=== PATIENT | male | born 1965 | race Caucasian/White ===

== ENCOUNTER → 2021-02-24 10:19 | Outpatient (CLI) | payer BC, SELFPAY ==
[2021-02-24 20:13] LABS: SARS-CoV-2 RNA PCR Positive
== END ==
PROVIDERS: PCP Internal Medicine; Visit Provider Internal Medicine
DX: U07.1 COVID-19 (principal); R68.89 Other general symptoms and signs
CPT/HCPCS: C9803; U0003; U0005

== ENCOUNTER 2021-03-03 11:28 | Outpatient (CLI) | payer BC, SELFPAY ==
--- NOTE | ~2021-03-03 | XR_ITS ---
EXAMINATION: XR chest 2V DATE: 03/03/2021 12:00 INDICATION: COVID-19 pneumonia. TECHNIQUE: Frontal and lateral views of the chest were obtained. COMPARISON: Chest 2 views 12/15/17, chest CT 01/06/2018 FINDINGS: The lung volumes are small. There are airspace opacities in the mid and lower lung zones wi th a basilar predominance. No pleural effusion or pneumothorax. The heart size is normal. IMPRESSION: 1. Small lung volumes with airspace opacities in the mid and lower lung zones with a basilar predomin ance, consistent with atelectasis versus pneumonia. Reviewed, dictated and finalized at location A. IMPRESSION: 1. Small lung volumes with airspace opacities in the mid and lower lung zones w ith a basilar predominance, consistent with atelectasis versus pneumonia.
[2021-03-03 12:49] LABS: Basophils Percent Auto 0.2 % (0.2-1.2); Hematocrit 40.1 % (42.0-52.0); Hemoglobin 13.8 g/dL (14.0-18.0); Immature Granulocyte Absolute 0.04 K/mm3 (0.00-0.031); Immature Granulocyte Percent A 0.8 % (0-0.5); Immature Platelet Fraction Pct 6.7 % (0.9-11.2); Lymphocytes Absolute Auto 0.75 K/mm3 (0.9-3.2); Lymphocytes Percent Auto 14.2 % (18.3-44.2); Mean Corpuscular HGB Conc 34.4 g/dl (32-36); Mean Corpuscular Hemoglobin 28.6 pg (26-34); Mean Corpuscular Volume 83.2 fl (80-100); Monocytes Absolute Auto 0.4 K/mm3 (0.1-0.6); Monocytes Percent Auto 6.8 % (2.6-8.5); Neutrophils Absolute Auto 4.1 K/mm3 (1.3-6.7); Platelet Count Result 122 k/mm3 (150-375); Red Blood Count 4.82 M/mm3 (4.6-6.20); Red Cell Distribution Width 12.6 % (11.5-14.5); White Blood Count 5.3 K/mm3 (4.5-10.0)
[2021-03-03 13:01] LABS: Alanine Aminotransferase 31 U/L (4-50); Albumin Level 3.9 g/dL (3.5-5.1); Alkaline Phosphatase 70 U/L (38-126); Anion Gap 4 mmol/L (8-16); Aspartate Amino Transferase 42 U/L (17-59); Bilirubin,Total 0.8 mg/dL (0.2-1.3); Blood Urea Nitrogen 15 mg/dL (9-20); Calcium 8.2 mg/dL (8.4-10.2); Carbon Dioxide 28 mmol/L (22-30); Chloride 101 mmol/L (98-107); Estimated Glomerular Filt Rate > 60; Glucose 110 mg/dL (75-110); Potassium 3.6 mmol/L (3.4-5.0); Sodium 133 mmol/L (137-145)
== END 2021-03-03 11:29 | disposition home or self-care (01) ==
PROVIDERS: PCP Internal Medicine; Visit Provider Internal Medicine
DX: U07.1 COVID-19 (principal)
CPT/HCPCS: 36415; 71046; 80053; 85025; 85055

== ENCOUNTER 2021-07-10 09:56 | Outpatient (CLI) | payer BC, SELFPAY ==
--- NOTE | 2021-07-14 17:11 | WPDPFTINT ---
PFT Procedure Performed PFT Procedure Performed Spirometry with Pre/Post Bronchodilator Plethysmography (Lung Vol) Diffusing Cap (DLCO) Flow Vol Loop PFT Interpretation DOS: 07/10/2021 REQUESTING: Dr. Jacinto Perkins REASON FOR TESTING: Shortness of breath PULMONARY FUNCTION TESTS Repeatability of spirometry FEV1 maneuver post bronchodilator is a Grade B. Spirometry: FEV1 is 96%, 3.22 L normal. FVC 107% normal. The FEV1/FVC ratio is 71% normal. There is a 19% increase in FEV1 which is greater than 200 mL after bronchodilator. This is significant Lung volumes: total lung capacity 107%, normal. Residual volume 108% normal. RV/TLC is 31% normal. No air trapping. Airway resistance normal. Diffusion: DLCO is 80%, normal. Flow volume loop: Inspiratory limb is not reproducible. IMPRESSION: Normal spirometry, normal lung volumes and diffusion. Irregular inspiratory limb is noted, significance is unclear. Annika Weiss MD
== END 2021-07-10 09:57 | disposition home or self-care (01) ==
PROVIDERS: PCP Internal Medicine; Visit Provider Internal Medicine
DX: R06.02 Shortness of breath (principal)
CPT/HCPCS: 94060; 94726; 94729

== ENCOUNTER 2021-09-05 08:20 | Outpatient (CLI) | payer BC, SELFPAY ==
--- NOTE | 2021-09-05 08:35 | EST_ITS ---
Patient Info Name: Saw Meyers Age: 56 years : 1965 Gender: Male Ht: 66 in Wt: 199 lbs BSA: 2.08 m2 HR: 71 bpm BP: 109 / 70 mmHg Heart Rhythm: Sinus Rhythm Exam Date: 09/05/2021 8:46 AM Exam Location: [facility] Patient Status: Outpatient Admit Date: 09/05/2021 Staff Ordering Physician: Cora Caraballo Pediatric Speech Language Pathologist: Rekha Contreras RDCS Attending Provider: Cora Caraballo Exercise Technologist: Lucy Figueroa CT Exercise Physician: Denton Sadler DO Exam Type: CA stress echo Study Info Indications R07.9 - Chest pain, unspecified Treadmill exercise stress echocardiogram is performed. Summary 1. 1. Negative Dionicio exercise stress test for ischemic ST changes by ECG criteria. 2. 2. Mildly reduced functional capacity, achieving 10 METs of workload. 3. 3. Appropriate HR response to exercise. 4. 4. Appropriate HR recovery at 1 minute post exercise. 5. 5. Negative stress echocardiogram for ischemia by wall motion analysis. 6. 6. Patient informed of the above results. Stress Echo Findings Left Ventricle Appropriate increase in LV endocardial thickening with systole. Appropriate augmentation of contractility with systole. No wall motion abnormality. Left Ventricle Normal LV systolic function, no wall motion abnormality. Right Ventricle Incidentally noted an enlarged RV. Protocol: Dionicio Stress ECG Details Stage: REST Duration (min): 1 min : 53 sec Speed (mph): 0.0 Grade (%): 0 HR (bpm): 68 SBP (mmHg): 109 DBP (mmHg): 70 METS: --- Stage: REST Duration (min): 9 min : 15 sec Speed (mph): 0.0 Grade (%): 0 HR (bpm): 80 SBP (mmHg): 109 DBP (mmHg): 70 METS: --- Stage: STAGE 1 Duration (min): 1 min : 0 sec Speed (mph): 1.7 Grade (%): 10 HR (bpm): 101 SBP (mmHg): 109 DBP (mmHg): 70 METS: --- Stage: STAGE 1 Duration (min): 2 min : 0 sec Speed (mph): 1.7 Grade (%): 10 HR (bpm): 109 SBP (mmHg): 109 DBP (mmHg): 70 METS: --- Stage: STAGE 1 Duration (min): 3 min : 0 sec Speed (mph): 1.7 Grade (%): 10 HR (bpm): 106 SBP (mmHg): 149 DBP (mmHg): 88 METS: --- Stage: STAGE 2 Duration (min): 1 min : 0 sec Speed (mph): 2.5 Grade (%): 12 HR (bpm): 115 SBP (mmHg): 149 DBP (mmHg): 88 METS: --- Stage: STAGE 2 Duration (min): 2 min : 0 sec Speed (mph): 2.5 Grade (%): 12 HR (bpm): 106 SBP (mmHg): 146 DBP (mmHg): 88 METS: --- Stage: STAGE 2 Duration (min): 3 min : 0 sec Speed (mph): 2.5 Grade (%): 12 HR (bpm): 117 SBP (mmHg): 146 DBP (mmHg): 88 METS: --- Stage: STAGE 3 Duration (min): 1 min : 0 sec Speed (mph): 3.4 Grade (%): 14 HR (bpm): 136 SBP (mmHg): 179 DBP (mmHg): 93 METS: --- Stage: STAGE 3 Duration (min): 1 min : 57 sec Speed (mph): 0.0 Grade (%): 0 HR (bpm): 138 SBP (mmHg): 179 DBP (mmHg): 93 METS: ---
== END 2021-09-05 08:21 | disposition home or self-care (01) ==
LOC: ANHCARD 08:21
PROVIDERS: PCP Internal Medicine; Visit Provider Nurse Practitioner
DX: R07.9 Chest pain, unspecified (principal)
CPT/HCPCS: 93351

== ENCOUNTER 2022-01-19 11:52 | Outpatient (CLI) | payer BC, SELFPAY ==
--- NOTE | ~2022-01-19 | XR_ITS ---
EXAMINATION: XR chest 2V 01/19/2022 12:08 INDICATION: Shortness of breath PROCEDURE: 2 view chest COMPARISON: 03/03/2021 FINDINGS: The lungs are clear. The cardiomediastinal silhouette is within normal limits. There are no pleural effusions. There is no pneumothorax suspected. IMPRESSION: 1: NO ACUTE CARDIOPULMONARY DISEASE. Reviewed, dictated and finalized at location B. OR PREMIUM AUDITOR
== END 2022-01-19 11:53 | disposition home or self-care (01) ==
LOC: ANHIMG 11:55
PROVIDERS: PCP Internal Medicine; Visit Provider Internal Medicine Pulmonary Disease
DX: R06.02 Shortness of breath (principal)
CPT/HCPCS: 71046

== ENCOUNTER 2022-02-16 07:46 | Outpatient (CLI) | payer BC, SELFPAY ==
--- NOTE | 2022-02-18 12:07 | WPDHOMESLEEP ---
Sleep Study - Home Unattended Date of Study: 02/16/22 Ordering Provider: Alex Santiago MD Interpreting Provider: Loan Valladares, DO Home Sleep Study Type: Apnea Link Air Height: 1.68 m Weight: 95.708 kg Body Mass Index: 34.0 Neck Circumference (inches): 16 Brady: 2 Reason for Sleep Study Snoring, unrefreshing sleep Sleep History The patient is a 56-year-old male with exertional dyspnea, GERD and BPH that had a home sleep test ordered by his executive pastry chef for evaluation of sleep apnea. The patient denies awakening from sleep short of breath. He denies awakening at night with heartburn, belching or cough. He rarely snores and is never loud enough that others complain. He denies having trouble sleeping when he has a cold. He denies waking up gasping for air throughout the night. He denies having breathing problems at night observed by others. He denies sweating excessively at night. He denies having heart palpitations or irregular heartbeats during the night. He denies falling asleep during the day and while driving. He denies sleep paralysis, cataplexy and hypnagogic / hypnopompic hallucinations. He occasionally has trouble at work due to sleepiness. He rarely has nightmares. He occasionally remembers his dreams. He frequently has thoughts racing through his mind. He denies feeling sad or depressed. He rarely has anxiety. He occasionally has muscular tension. He denies noticing parts of his body jerk. He denies kicking during the night. He denies having crawling and aching feelings in his legs as well as leg pain during the night. He denies grinding his teeth during sleep awakening with morning jaw pain. He denies being bothered by pain during the day and being awakened by pain during the night. He denies waking up feeling stiff in the morning with sore achy muscles. He denies waking up with pain in the neck, spine or other joints. She he goes to bed at 9:00 p.m. on weekdays and 10:00 p.m. on the weekends. It takes him 2 hours to fall asleep. He wakes up 1-3 times through the night to urinate. It will take 10 1 or more hours to fall back asleep. He did not list when he wakes up in the morning. He typically gets 5-7 hours of sleep per night. He does not stay in bed after waking up in the morning. He currently lives with his . He does not consume any caffeinated beverages within 2 hours of bedtime. He does not engage in physical exercise before bedtime. He will watch television before falling asleep. He does not take naps in the afternoon or the evening. He drinks 2-3 cups of caffeinated beverage per day. He denies tobacco, alcohol and recreational drug use. [facility] Past Medical History Medical History Benign prostatic hyperplasia Chronic GERD Elevated BP without diagnosis of hypertension Shortness of breath Family History Family History Father Hypertension Family history of diabetes mellitus in first degree relative Social History Social History Smoking status: Never smoker Second hand tobacco smoke exposure: Yes Alcohol intake: current Alcohol use details: rarely Medications Home Medications Medication Instructions Recorded Confirmed Type pantoprazole 40 mg tablet,delayed See Rx Instructions .ROUTE 02/11/21 11/20/21 Rx release .COMPLEX #90 tablet finasteride 5 mg tablet 5 mg PO DAILY #90 tablet 11/14/21 11/20/21 Rx Sleep Procedure This test was performed using 4 channel monitoring including respiratory effort channel, snoring channel, heart rate channel, and oxygen saturation channel. This study was scored using [facility] guidelines. Sleep Architecture The patient had a total recording time of 8 hours 16 minutes and total monitoring time of 8 hours 4 minutes. The patient spent 5 hours 28 minutes, 6
[2022-02-18 12:21] VITALS: BMI 34.0
== END 2022-02-17 13:23 | disposition home or self-care (01) ==
LOC: ANHCSM 07:46
PROVIDERS: PCP Internal Medicine; Visit Provider Internal Medicine Pulmonary Disease
DX: G47.10 Hypersomnia, unspecified (principal); G47.33 Obstructive sleep apnea (adult) (pediatric)
CPT/HCPCS: 95806

== ENCOUNTER 2022-05-01 08:21 | Outpatient (CLI) | payer BC, SELFPAY ==
--- NOTE | 2022-05-01 08:38 | ECHO_ITS ---
Patient Info Name: Saw Meyers Age: 56 years : 1965 Gender: Male Ht: 66 in Wt: 200 lbs BSA: 2.09 m2 HR: 66 bpm BP: 142 / 99 mmHg Heart Rhythm: Sinus Rhythm Technical Quality: Good Exam Date: 05/01/2022 9:18 AM Exam Location: [facility] Patient Status: Outpatient Admit Date: 05/01/2022 Staff Ordering Physician: Alex Santiago MD Imaging Analyst: La Elizabeth RDCS Attending Provider: Alex Santiago MD Referring Physician: Jack GRACIA; Exam Type: CA echo doppler color flow Study Info Indications R06.02 - Shortness of breath Complete two-dimensional, color flow and Doppler transthoracic echocardiogram is performed. Summary 1. Complete two-dimensional, color flow and Doppler transthoracic echocardiogram is performed. 2. Left ventricular chamber dimension is normal. 3. Left ventricular systolic function is normal, estimated at 60-65%. 4. The left ventricular diastolic function is grade I diastolic dysfunction. 5. E/e' 13 is mildly elevated. 6. Left atrial chamber dimension is mildly enlarged. 7. There is mild aortic valve sclerosis. 8. There is mild mitral valve regurgitation. 9. There is mild tricuspid valve regurgitation. 10. No pulmonary hypertension, estimated pulmonary arterial systolic pressure is 24 mmHg. Left Ventricle E/e' 13 is mildly elevated. Left ventricular chamber dimension is normal. Left ventricular systolic function is normal, estimated at 60-65%. The left ventricular diastolic function is grade I diastolic dysfunction. Right Ventricle Right ventricular chamber dimension is normal. Right ventricular systolic function is normal. Left Atria Left atrial chamber dimension is mildly enlarged. Right Atria Right atrial chamber dimension is normal. Aortic Valve The aortic valve is trileaflet. There is mild aortic valve sclerosis. There is no aortic valve stenosis. There is no aortic valve regurgitation. Pulmonic Valve There is no pulmonic regurgitation. Mitral Valve There is no mitral valve stenosis. There is mild mitral valve regurgitation. Tricuspid Valve There is mild tricuspid valve regurgitation. No pulmonary hypertension, estimated pulmonary arterial systolic pressure is 24 mmHg. Pericardium/Pleural There is no pericardial effusion. Inferior Vena Cava Normal inferior vena cava with >50% collapse upon inspiration consistent with normal right atrial pressure, 5 mmHg. Aorta The aortic root size at the sinus of Valsalva is normal. Left Ventricular Outflow Tract Name Value Normal LVOT 2D LVOT Diameter 1.9 cm LVOT Doppler LVOT Peak Gradient 2 mmHg LVOT Mean Gradient 1 mmHg LVOT VTI 14 cm LVOT VTI/AV VTI Ratio 0.7 LVOT Stroke Volume 43 ml LVOT CO 2.9 l/min LVOT CI 1.4 l/min/m2 Pulmonic Valve Name V
== END 2022-05-01 08:22 | disposition home or self-care (01) ==
PROVIDERS: PCP Internal Medicine; Visit Provider Internal Medicine Pulmonary Disease
DX: R06.02 Shortness of breath (principal); I08.3 Combined rheumatic disorders of mitral, aortic and tricuspid valves
CPT/HCPCS: 93306

== ENCOUNTER → 2023-01-30 09:42 | Outpatient (CLI) | payer BC, SELFPAY ==
--- NOTE | ~2023-01-30 | MR_ITS ---
EXAMINATION: MR hand RT wo con DATE: 01/30/2023 10:47 INDICATION: Acute dysfunction of right flexor pollicis longus tendon. TECHNIQUE: Magnetic resonance imaging (MRI) of the right hand was performed without intravenous contr ast. COMPARISON: None. FINDINGS: Bone alignment is normal. No fracture. There is edema-like marrow signal intensity and tuft of first distal phalanx, likely stress reaction. There is mild osteoarthritis of triscaphe joint, sabino desean-hamate joint, pisotriquetral joint, and first carpometacarpal joint. There are small intraosseou s ganglia in the heads of the third and fifth metacarpals. There is mild tendinopathy of flexor polli cis longus distally characterized by increased signal intensity. The pulleys are normal. IMPRESSION: 1. Mild tendinopathy of flexor pollicis longus distally. 2. Mild polyarticular osteoarthritis. Reviewed, dictated and finalized at location A. ICA ARCHITECT
== END ==
PROVIDERS: PCP Internal Medicine; Visit Provider Plastic Surgery
DX: S66.001A Unspecified injury of long flexor muscle, fascia and tendon of right thumb at wrist and hand level, initial encounter (principal); X58.XXXA Exposure to other specified factors, initial encounter; M19.041 Primary osteoarthritis, right hand
CPT/HCPCS: 73218

== ENCOUNTER 2023-02-26 12:01 | Outpatient (CLI) | payer BC, SELFPAY ==
--- NOTE | ~2023-02-26 | XR_ITS ---
XR finger 1st RT min 2V DATE: 02/26/2023 12:24 INDICATION: Right first digit abnormality TECHNIQUE: 3 views of first digit COMPARISON: None FINDINGS: No fracture or dislocation, periosteal reaction or bone destruction. No radiopaque foreign body or subcutaneous emphysema. Mild osteoarthritis at triscaphe and first carpometacarpal joints. IMPRESSION: Mild osteoarthritis Reviewed, dictated and finalized at location B. IMPRESSION: Mild osteoarthritis
== END 2023-02-26 12:02 | disposition home or self-care (01) ==
PROVIDERS: PCP Internal Medicine; Visit Provider Plastic Surgery
DX: S62.521A Displaced fracture of distal phalanx of right thumb, initial encounter for closed fracture (principal); X58.XXXA Exposure to other specified factors, initial encounter; M19.041 Primary osteoarthritis, right hand
CPT/HCPCS: 73140

== ENCOUNTER 2023-10-27 14:31 | Inpatient (IN) | payer BC, SELFPAY ==
--- NOTE | ~2023-10-27 | CT_ITS ---
EXAMINATION: CT abdomen pelvis w con DATE: 10/27/2023 17:21 INDICATION: Low abdominal pain. TECHNIQUE: Computed tomography (CT) of the abdomen and pelvis was performed with 100 mL Omnipaque 350 intravenous contrast. Automated exposure control and iterative reconstruction technique were employe d. The dose-length product was 710.01 mGy-cm. COMPARISON: Abdomen CT 01/06/2018 FINDINGS: The visualized portions of the lung bases demonstrate mild atelectasis. No pleural effusion . The heart size is normal. No pericardial effusion. There is a small sliding hiatal hernia. The live r, gallbladder, spleen, and pancreas are normal. There are masses in the adrenal glands measuring up to 13 mm on the left measuring soft tissue attenuation without change from 01/06/18, likely adenomas. T he kidneys are normal. There is a left inguinal hernia containing fat. There are scattered diverticul a in the colon. There is wall thickening of the sigmoid colon with surrounding fat stranding. The betty endix is normal. There is free intraperitoneal gas in the upper abdomen and near the sigmoid colon. T here is no free intraperitoneal fluid. There are no pathologically enlarged lymph nodes. There is sev ere lower lumbar spondylosis. There is mild thoracic spondylosis. IMPRESSION: 1. Perforated sigmoid diverticulitis. No abscess. Reviewed, dictated and finalized at location A. NSED MARRIAGE AND FAMILY THERAPIST
--- NOTE | ~2023-10-27 | US_ITS ---
EXAMINATION:US venous doppler LE RT INDICATION:Right leg swelling TECHNIQUE: Multiple grayscale, color flow and Doppler images of the right lower extremity deep venous systems were obtained and reviewed. COMPARISON:No prior studies for comparison. FINDINGS: The common femoral, superficial femoral and popliteal veins demonstrate normal respiratory variation, augmentation and compressibility. Color flow is also seen within the posterior tibial, pe roneal, greater saphenous and profunda veins. IMPRESSION: 1: No lower extremity deep venous thrombosis. Reviewed, dictated and finalized at location A. 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
[2023-10-27 14:36] VITALS: BP 116/98; PULSE 141; RESP 16; TEMP 37.5; O2SAT 98
[2023-10-27 14:49] LABS: Hematocrit 45.3 % (42.0-52.0); Hemoglobin 15.3 g/dL (14.0-18.0); Mean Corpuscular HGB Conc 33.8 g/dl (32-36); Mean Corpuscular Hemoglobin 28.1 pg (26-34); Mean Corpuscular Volume 83.1 fl (80-100); Mean Platelet Volume 11.8 fl (7.4-10.4); Platelet Count Result 145 k/mm3 (150-375); Red Blood Count 5.45 M/mm3 (4.6-6.20); Red Cell Distribution Width 12.7 % (11.5-14.5); White Blood Count 15.5 K/mm3 (4.5-10.0)
[2023-10-27 15:06] LABS: Alanine Aminotransferase 28 U/L (6-50); Albumin Level 4.6 g/dL (3.5-5.1); Alkaline Phosphatase 83 U/L (38-126); Anion Gap 10 mmol/L (8-16); Aspartate Amino Transferase 32 U/L (17-59); Bilirubin,Total 1.1 mg/dL (0.2-1.3); Blood Urea Nitrogen 16 mg/dL (9-20); Calcium 9.4 mg/dL (8.4-10.2); Carbon Dioxide 25 mmol/L (22-30); Chloride 98 mmol/L (98-107); Estimated Glomerular Filt Rate > 60; Glucose 127 mg/dL (65-110); Lipase 47 U/L (23-300); Potassium 3.9 mmol/L (3.4-5.0); Sodium 133 mmol/L (137-145)
[2023-10-27 15:10] LABS: Appearance Urine Clear (Clear); Bilirubin Urine Negative (Negative); Blood Urine Negative (Negative); Color Urine Yellow (Yellow); Glucose Urine UA Negative (Negative); Ketones Urine Negative (Negative); Leukocyte Esterase Ur Negative LEU/UL (Negative); Nitrate Urine Negative (Negative); Protein Urine Negative (Negative); Specific Grav Ur 1.007 (1.001-1.035); Urobilinogen Urine 0.2 mg/dL (<2.0); pH Urine 7.5 (5.0-9.0)
[2023-10-27 15:15] LABS: Band Neutrophils Percent 11 % (0-6); Lymphocytes Absolute Manual 0.62 K/mm3 (1.1-4.5); Monocytes Absolute Manual 0.46 K/mm3 (0.1-0.90); Monocytes Percent Manual 3 % (3-9); Neutrophils Absolute Manual 14.41 K/mm3 (1.3-6.7); Neutrophils Percent Manual 82 % (46-73); Total Cells Counted 100
[2023-10-27 15:16] LABS: Schistocytes 3+ (NORMAL)
[2023-10-27 15:18] LABS: Add Urine Microscopic? NO
--- NOTE | 2023-10-27 18:05 | ECG_ITS ---
Measurements Intervals Boles Rate: 105 P: 55 DE: 184 QRS: 2 QRSD: 97 T: 40 QT: 338 QTc: 448 Interpretive Statements SINUS TACHYCARDIA POSSIBLE LEFT ATRIAL ENLARGEMENT DELAYED PRECORDIAL R/S TRANSITION BORDERLINE T WAVE ABNORMALITY- INFERIOR LEADS BORDERLINE ECG NO PREVIOUS ECG AVAILABLE FOR COMPARISON Electronically Signed On 10-27-2023 19:25:01 SEMICONDUCTOR PACKAGES PLATEMAKER by Denton Sadler D.O.
--- NOTE | 2023-10-27 18:06 | ED.GENADULT ---
HPI - General Adult General Chief complaint: Abdominal Pain Stated complaint: ab pain Time Seen by Provider: 10/27/23 16:59 History of Present Illness HPI narrative: 58-year-old male presenting to the emergency department for evaluation left-sided abdominal pain. Patient reports that the pain started this morning. Patient did have some associated nausea but no vomiting. Patient denies any change in bowel habits. Patient denies any prior history of diverticular disease. Patient has no prior abdominal surgical history and is not on any blood thinners. Related Data Allergies Allergy/AdvReac Type Severity Reaction Status Date / Time No Known Allergies Allergy Verified 10/27/23 16:44 Review of Systems Review of Systems: All systems reviewed & are unremarkable except as noted in HPI and below PMFSH Past Medical History Medical History Benign prostatic hyperplasia Chronic GERD Elevated BP without diagnosis of hypertension Shortness of breath Family History Family History Father Hypertension Family history of diabetes mellitus in first degree relative Social History Social History Smoking status: Never smoker Second hand tobacco smoke exposure: Yes Alcohol intake: current Alcohol use details: rarely Lack of Transportation: No Lack of Food: Never True Current Housing: I Have Housing Concerned About Future Housing: No Difficulty Paying Gas/Electric Bills: No Difficulty Paying for Meds: No Currently Unemployed: YES Education: High School Diploma/GED Difficulty w/ Childcare or Family Care: No Exam Narrative: APPEARANCE: Uncomfortable appearing HEAD: normocephalic, atraumatic. EYES: PERRLA/EOMI, conjunctivae clear. NOSE: Normal no drainage EARS:TMS clear with good light reflex. THROAT: Pharynx clear, no exudate. NECK: Supple. No adenopathy, no masses. RESPIRATORY: Airway patent, respirations nonlabored. Clear to auscultation bilaterally, no rales, rhonchi, wheezing. CARDIOVASCULAR: Regular rate and rhythm without murmurs rubs or gallops. ABDOMINAL: Soft, nontender, nondistended, normal bowel sounds MUSCULOSKELETAL: Moves all extremities. Strength/ROM intact, No edema, No calf tenderness. NEURO: Alert. Cranial nerves II through XII intact. Good gait. Good coordination SKIN: Warm, dry. Normal Color PSYCHIATRIC: Normal affect/mood. Course Course Emergency Course: 58-year-old male presenting to the emergency department for evaluation of lower abdominal pain. Patient was afebrile but does have a leukocytosis of 15.5. CMP had no significant abnormalities UA showed no evidence of infection. CT showed evidence of perforated sigmoid diverticulitis without abscess. I discussed the case with surgery and they will see the patient as consult. Patient was started on Zosyn and blood cultures are pending. I discussed the case with the hospitalist and patient was accepted for admission. Both patient and family were updated on the results of the workup planned for admission and treatment. All questions and concerns were addressed and patient was resting comfortably at time of admission. Vital Signs Vital signs: Vital Signs Temperature 99.5 F 10/27/23 14:36 Pulse Rate 141 H 10/27/23 14:36 Respiratory Rate 16 10/27/23 14:36 Blood Pressure 116/98 H 10/27/23 14:36 Pulse Oximetry 98 10/27/23 14:36 Oxygen Delivery Room Air 10/27/23 14:36 Temperature 99.5 F 10/27/23 14:36 Pulse Rate 104 H 10/27/23 18:48 Respiratory Rate 17 10/27/23 18:48 Blood Pressure 114/78 10/27/23 18:48 Pulse Oximetry 98 10/27/23 18:48 Oxygen Delivery Room Air 10/27/23 14:36 Medical Decision Making Differential Diagnosis Differential Diagnosis: Diverticulitis, colitis, small-bowel obstruction, enteritis Vital
[2023-10-27] MEDS: HYDROmorphone HCL INJ (*CRX) 1 MG/ML SYR 0.5 MG IV PUSH ×2 (18:28→21:55)
[2023-10-27] MEDS: PIPERACILLN/TAZ 3.375GM/NS50ML 3.375 GM/50 ML BAG IVPB (18:28)
[2023-10-27] MEDS: SODIUM CHLORIDE 0.9% IV 1,000 ML 999 ML IV CONT (18:28)
[2023-10-27 18:48] VITALS: BP 114/78; PULSE 104; RESP 17; O2SAT 98
[2023-10-27 18:53] LABS: INR 1.1; Prothrombin Time 14.3 Seconds (11.1-14.7)
[2023-10-27 18:54] LABS: Partial Thromboplastin Time 28.5 SECONDS (22.3-36.8)
--- NOTE | 2023-10-27 20:31 | PM.IMHP ---
H&P: HPI History of Present Illness Date/Time: 10/27/23 20:31 Chief Complaint: Abdominal pain. Narrative: This is a 58-year-old male with past medical history significant for benign prostatic hyperplasia, GERD, diverticulosis. Patient presents to the emergency room due to abdominal pain localized to the lower abdomen while he was at work had been in his usual state of health up until this point denies any diarrhea, fevers, chills, nausea, vomiting pain is crampy raises at 10/10 in intensity. Patient denies any changes in stool character or bowel habits, no bright red blood per rectum, no melena, has had good appetite, no nausea, no vomiting, no diarrhea, no loose stools. Preliminary workup was significant for CT of abdomen and pelvis with perforated diverticulum. Patient has been admitted for further evaluation management and treatment. EXAMINATION: CT abdomen pelvis w con DATE: 10/27/2023 17:21 INDICATION: Low abdominal pain. TECHNIQUE: Computed tomography (CT) of the abdomen and pelvis was performed with 100 mL Omnipaque 350 intravenous contrast. Automated exposure control and iterative reconstruction technique were employed. The dose-length product was 710.01 mGy-cm. COMPARISON: Abdomen CT 01/06/2018 FINDINGS: The visualized portions of the lung bases demonstrate mild atelectasis. No pleural effusion. The heart size is normal. No pericardial effusion. There is a small sliding hiatal hernia. The liver, gallbladder, spleen, and pancreas are normal. There are masses in the adrenal glands measuring up to 13 mm on the left measuring soft tissue attenuation without change from 01/06/18, likely adenomas. The kidneys are normal. There is a left inguinal hernia containing fat. There are scattered diverticula in the colon. There is wall thickening of the sigmoid colon with surrounding fat stranding. The appendix is normal. There is free intraperitoneal gas in the upper abdomen and near the sigmoid colon. There is no free intraperitoneal fluid. There are no pathologically enlarged lymph nodes. There is severe lower lumbar spondylosis. There is mild thoracic spondylosis. IMPRESSION: 1. Perforated sigmoid diverticulitis. No abscess. Review of Systems Review of Systems: abdominal pain Constitutional: Constitutional: Denies chills, Denies fatigue, Denies fever(s), Denies malaise, Denies night sweats, Denies poor appetite and Denies weakness Eyes: Eyes: Denies change in vision PMFSH Past Medical History Medical History Benign prostatic hyperplasia Chronic GERD Elevated BP without diagnosis of hypertension Shortness of breath Family History Family History Father Hypertension Family history of diabetes mellitus in first degree relative Social History Social History Smoking status: Never smoker Second hand tobacco smoke exposure: Yes Alcohol intake: never Alcohol use details: rarely Substance use: never Lack of Transportation: No Lack of Food: Never True Current Housing: I Have Housing Concerned About Future Housing: No Difficulty Paying Gas/Electric Bills: No Difficulty Paying for Meds: No Currently Unemployed: No Education: Don't Know Difficulty w/ Childcare or Family Care: No Spiritual care concerns: No Meds Home Medications and Allergies Home Medications Medication Instructions Recorded Confirmed Type finasteride 5 mg tablet 5 mg PO HS 10/27/23 10/27/23 History pantoprazole 40 mg tablet,delayed 40 mg PO QAM 10/27/23 10/27/23 History release Allergies Allergy/AdvReac Type Severity Reaction Status Date / Time No Known Allergies Allergy Verified 10/27/23 16:44 Vital Signs Vital Signs - 24 hr 10/27/23 14:36 10/27/23 18:48 Temperature 99.5 F Pulse Rate 141 H 104 H Respiratory Rate 16 17 Blood Pres
--- NOTE | 2023-10-27 21:47 | ADMGEN ---
This patient, Saw Meyers, was admitted to Medical Room 345-01. Patient/family oriented to hospital policies and general routines including ID bracelet, bed and alarms, visiting hours, pain management, procedures, bathroom and other care routines, personal items, smoking policy, room service/diet, and visiting hours. Information on how to activate the Rapid Response Team has been discussed. Patient/Family are encouraged to report perceived risks to care and to ask questions if they do not understand what they are told or what they should do.
[2023-10-27 21:51] VITALS: BMI 29.1
[2023-10-27] MEDS: SODIUM CHLORIDE 0.9% IV 1,000 ML 125 ML IV CONT (21:55)
[2023-10-27 22:00] VITALS: BP 118/81; PULSE 96; RESP 16; TEMP 37; O2SAT 99
[2023-10-28] VITALS (9 sets, daily range): BP systolic 111–130; BP diastolic 66–75; PULSE 56–100; RESP 14–18; TEMP 36.9–37; O2SAT 94–98
[2023-10-28] MEDS: HYDROmorphone HCL INJ (*CRX) 1 MG/ML SYR 0.5 MG IV PUSH ×2 (03:21→08:19)
[2023-10-28] MEDS: SODIUM CHLORIDE 0.9% IV 1,000 ML 125 ML IV CONT ×3 (06:04→21:16)
--- NOTE | 2023-10-28 08:08 | PM.IMPN ---
Progress Note: A&P Assessment and Plan (1) Perforation of sigmoid colon due to diverticulitis: Code(s): K57.20 - Diverticulitis of large intestine with perforation and abscess without bleeding Status: Acute Assessment and Plan: 10/28: No history of similar episodes in the past. It appears plan from surgery is to proceed nonoperatively with reimaging on Wednesday. NPO at this time. Zosyn is ongoing. IVF nacl at 125ml/hr. Increase pain regimen as not relieved on current dosing. (2) Chronic GERD: Code(s): K21.9 - Gastro-esophageal reflux disease without esophagitis Status: Acute Assessment and Plan: 10/28: Protonix to continue - change to IV. (3) Abdominal pain: Code(s): R10.9 - Unspecified abdominal pain Status: Acute (4) Fatty liver disease, nonalcoholic: Code(s): K76.0 - Fatty (change of) liver, not elsewhere classified Status: Acute (5) CONSTANCE (obstructive sleep apnea): Code(s): G47.33 - Obstructive sleep apnea (adult) (pediatric) Status: Acute Plan Diet: NPO Activity: As tolerated. Analgesia: Hydromorphone IV VTE prophylaxis: lovenox. Ulcer prophylaxis: protonix. Disposition: Expect 48-72 hours of further management. Time Spent With Patient Time with patient: 25 - 35 minutes Subjective Date/time seen: 10/28/23 08:08 Interval history: Saw Meyers is a 58 year old male who presents with abdominal pain starting yesterday am. He denies history of similar. He awoke with pain across the lower abdomen. He does not report any GIB. The symptoms continued to worsen during the morning and he presented for evaluation. ED workup noted for leukocytosis and perforated diverticulitis. Surgery consulted and patient admitted on zosyn. 10/28: Pain still significant, not much relief from the 0.5mg of hydromorphone. Review of Systems Review of Systems: All systems reviewed & are unremarkable except as noted in HPI and below Exam Narrative: GENERAL APPEARANCE: Appears to be in no acute distress. HEAD: normocephalic atraumatic EYES: PERRL, EOMI. Vision grossly intact. ENT: Hearing grossly intact, no nasal discharge NECK: Neck supple, trachea midline. CARDIAC: Normal S1/S2. Rhythm is regular. No murmurs, rubs, or gallops. No cyanosis or pallor. Extremities are warm and well perfused. LUNGS: Clear to auscultation without rales, rhonchi, wheezing or diminished breath sounds. Respirations even and unlabored. ABDOMEN: BS positive x 4 quadrants. Soft, nondistended, ttp across the lower quadrants. No guarding or rebound. MSK: No joint tenderness/swelling, fair strength in all extremities. PERIPHERAL VASCULAR: Peripheral pulses palpable. Normal perfusion, cap refill <2 seconds. No edema. NEURO: Follows commands. No focal deficits. SKIN: [place] without lesions or eruptions. PSYCH: Stable, no paranoia or delusional thinking. Objective Data Vital Signs Vital Signs: Vital Signs - 24 hr 10/27/23 14:36 10/27/23 18:48 10/27/23 22:00 Temperature 99.5 F 98.6 F Pulse Rate 141 H 104 H 96 Respiratory Rate 16 17 16 Blood Pressure 116/98 H 114/78 118/81 Pulse Oximetry 98 98 99 Oxygen Delivery Room Air 10/28/23 00:00 10/28/23 04:00 10/28/23 06:00 Temperature 98.6 F Pulse Rate 98 88 56 L Respiratory Rate 18 Blood Pressure 111/66 Pulse Oximetry 94 Oxygen Delivery Intake/Output Intake/Output: Intake & Output 10/25/23 10/26/23 10/27/23 10/28/23 23:59 23:59 23:59 23:59 Intake Total 1050 1000 Balance 1050 1000 Meds/Results Medications: Active Medications Generic Name Dose Route Start Last Admin Trade Name Freq PRN Reason Stop Dose Admin Hydromorphone HCl 0.5 mg 10/27/23 18:45 10/28/23 03:21 Hydromorphone Hcl Inj (*Crx) 1 Mg/Ml Syr IV PUSH 0.5 mg Q4H PRN Administration Pain Rated 7-10 Sodium Chloride 1,000 mls @ 125 mls/hr 10/27/23 18:45 10/28/23 06:04 Normal Saline Iv IV CONT 125 mls/hr .Q
[2023-10-28] MEDS: ONDANSETRON INJ 4 MG/2 ML VIAL IV PUSH (08:19)
--- NOTE | 2023-10-28 10:26 | PM.CNGS ---
Assessment and Plan Assessment and plan (1) Perforation of sigmoid colon due to diverticulitis: Code(s): K57.20 - Diverticulitis of large intestine with perforation and abscess without bleeding Status: Acute Assessment and Plan: CT showed acute sigmoid diverticulitis with tiny areas of free intraperitoneal air near the sigmoid colon and then some more distant free air in the upper abdomen, consistent with perforation. There is no CT evidence of an abscess. He has no diffuse peritoneal signs on exam and is hemodynamically stable. We would recommend to initially treat conservatively with IV antibiotics and keep him NPO for now. Will adjust analgesics to help with pain control. There are no repeat labs today, so I have added some labs this morning. Discussed with the patient that we will continue to monitor closely with labs and serial abdominal exams to see how he progresses. Hopefully this will continue to improve with IV antibiotics. Although, if the patient worsens with conservative treatment, then he could require surgery in the acute phase, which we try to avoid as it comes with a higher risk of a colostomy. (2) Benign prostatic hyperplasia: Qualifiers: Lower urinary tract symptom presence: symptoms absent Qualified Code(s): N40.0 - Benign prostatic hyperplasia without lower urinary tract symptoms Code(s): N40.0 - Benign prostatic hyperplasia without lower urinary tract symptoms Status: Acute (3) Chronic GERD: Code(s): K21.9 - Gastro-esophageal reflux disease without esophagitis Status: Acute Plan I have discussed the patient's case and plan of care with Dr. Mcpherson. Thank you for allowing us to see the patient in consultation and we will continue to follow along with you. History of Present Illness Consult details Consult date: 10/28/23 Reason for consult: other (Perforated diverticulitis) Requesting physician: Christos Carvalho MD Narrative: This is a 58-year-old man we have been asked to see in surgical consultation for perforated diverticulitis. He reports being in his normal state of health until he woke up yesterday morning. He noticed some lower abdominal cramping pain when he woke up, but was able to go to work. Only a few hours into work, his abdominal pain progressively became more severe. He then left work and reports associated nausea, but no vomiting. His reports him having a 103? F fever yesterday, which prompted them to call his PCP. When seen by his PCP, they referred him to the ER. [place] [id number] [place] scan of the abdomen and pelvis showed perforated sigmoid diverticulitis, no abscess. In the ER, his heart rate was as high as 145. EKG showed sinus tachycardia. His heart rate improved after receiving IV fluids and pain medication. He was admitted to the hospitalist service and started on IV Zosyn. He is having some pain relief with the IV Dilaudid. He is passing flatus and his last BM was yesterday and reportedly normal for him. This is his first episode of diverticulitis. Denies any previous abdominal surgeries or colonoscopies. He did a Cologuard this year that was reportedly negative. Review of Systems Review of Systems: All systems reviewed & are unremarkable except as noted in HPI and below PMFSH Past Medical History Medical History Benign prostatic hyperplasia Chronic GERD Elevated BP without diagnosis of hypertension Shortness of breath Family History Family History Father Hypertension Family history of diabetes mellitus in first degree relative Social History Social History Smoking status: Never smoker Second hand tobacco smoke exposure: Yes Alcohol intake: never Alcohol use details: rarely Substance use: never Lack of Transportation: No [place]
[2023-10-28] MEDS: PIPERACILLN/TAZ 3.375GM/NS50ML 3.375 GM/50 ML BAG IVPB ×3 (11:23→20:14)
[2023-10-28] MEDS: HYDROmorphone HCL INJ (*CRX) 1 MG/ML SYR IV PUSH ×4 (11:27→21:16)
[2023-10-28 11:34] LABS: Hematocrit 39.6 % (42.0-52.0); Hemoglobin 13.1 g/dL (14.0-18.0); Immature Platelet Fraction Pct 7.1 % (0.9-11.2); Mean Corpuscular HGB Conc 33.1 g/dl (32-36); Mean Corpuscular Hemoglobin 28.5 pg (26-34); Mean Corpuscular Volume 86.1 fl (80-100); Mean Platelet Volume 11.5 fl (7.4-10.4); Platelet Count Result 100 k/mm3 (150-375); Red Cell Distribution Width 13.2 % (11.5-14.5); White Blood Count 9.5 K/mm3 (4.5-10.0)
[2023-10-28] MEDS: PANTOPRAZOLE SODIUM IV 40 MG VIAL IV PUSH (14:27)
[2023-10-29] VITALS (9 sets, daily range): BP systolic 123–129; BP diastolic 67–86; PULSE 82–95; RESP 16–20; TEMP 36.9–37.1; O2SAT 96–97
[2023-10-29] MEDS: PIPERACILLN/TAZ 3.375GM/NS50ML 3.375 GM/50 ML BAG IVPB ×4 (02:50→20:38)
[2023-10-29] MEDS: HYDROmorphone HCL INJ (*CRX) 1 MG/ML SYR IV PUSH ×4 (02:50→12:32)
[2023-10-29] MEDS: ONDANSETRON INJ 4 MG/2 ML VIAL IV PUSH ×2 (02:55→18:13)
[2023-10-29 05:57] LABS: Hematocrit 37.3 % (42.0-52.0); Hemoglobin 12.3 g/dL (14.0-18.0); Immature Platelet Fraction Pct 7.1 % (0.9-11.2); Mean Corpuscular Hemoglobin 28.3 pg (26-34); Mean Corpuscular Volume 85.7 fl (80-100); Mean Platelet Volume 11.6 fl (7.4-10.4); Platelet Count Result 95 k/mm3 (150-375); Red Blood Count 4.35 M/mm3 (4.6-6.20); Red Cell Distribution Width 12.8 % (11.5-14.5); White Blood Count 9.1 K/mm3 (4.5-10.0)
[2023-10-29 06:01] LABS: Anion Gap 8 mmol/L (8-16); Blood Urea Nitrogen 12 mg/dL (9-20); Calcium 7.9 mg/dL (8.4-10.2); Carbon Dioxide 21 mmol/L (22-30); Chloride 106 mmol/L (98-107); Estimated CRCL calculation 81 ml/min; Estimated Glomerular Filt Rate > 60; Glucose 95 mg/dL (65-110); Potassium 4.1 mmol/L (3.4-5.0); Sodium 135 mmol/L (137-145)
[2023-10-29] MEDS: SODIUM CHLORIDE 0.9% IV 1,000 ML 125 ML IV CONT ×2 (06:20→17:00)
[2023-10-29] MEDS: PANTOPRAZOLE SODIUM IV 40 MG VIAL IV PUSH (08:10)
--- NOTE | 2023-10-29 12:50 | PM.IMPN ---
Progress Note: A&P Assessment and Plan (1) Perforation of sigmoid colon due to diverticulitis: Code(s): K57.20 - Diverticulitis of large intestine with perforation and abscess without bleeding Status: Acute (2) Fatty liver disease, nonalcoholic: Code(s): K76.0 - Fatty (change of) liver, not elsewhere classified Status: Acute (3) Chronic GERD: Code(s): K21.9 - Gastro-esophageal reflux disease without esophagitis Status: Acute (4) CONSTANCE (obstructive sleep apnea): Code(s): G47.33 - Obstructive sleep apnea (adult) (pediatric) Status: Acute Plan 58-year-old male presented with left-sided abdominal pain. Started 10/27/2023. On presentation was tachycardic in 140s, leukocytosis at 15.5. Urinalysis negative CT abdomen pelvis showed perforated sigmoid diverticulitis with no abscess. General surgery has been consulted. Plan on operative management. IV Zosyn and IV fluids ordered. No prior history of similar episodes in the past. CONSTANCE on CPAP Chronic GERD on PPI Fatty liver disease DVT prophylaxis Lovenox Thrombocytopenia new on Lovenox held. Will continue to monitor now. Could be related to IV antibiotics/sepsis/infection Diet per General surgery Subjective Date/time seen: 10/29/23 12:50 Interval history: Saw Meyers is a 58 year old male who presents with abdominal pain starting yesterday am. He denies history of similar. He awoke with pain across the lower abdomen. He does not report any GIB. The symptoms continued to worsen during the morning and he presented for evaluation. ED workup noted for leukocytosis and perforated diverticulitis. Surgery consulted and patient admitted on zosyn. 10/28: Pain still significant, not much relief from the 0.5mg of hydromorphone. 10/29/2023: Patient feels a little better today. Pain has improved. Still requiring IV pain medication. No nausea vomiting. Remains afebrile. Labs reviewed. Review of Systems Review of Systems: All systems reviewed & are unremarkable except as noted in HPI and below Exam Narrative: GENERAL APPEARANCE: Appears to be in no acute distress. HEAD: normocephalic atraumatic EYES: PERRL, EOMI. Vision grossly intact. ENT: Hearing grossly intact, no nasal discharge NECK: Neck supple, trachea midline. CARDIAC: Normal S1/S2. Rhythm is regular. No murmurs, rubs, or gallops. No cyanosis or pallor. Extremities are warm and well perfused. LUNGS: Clear to auscultation without rales, rhonchi, wheezing or diminished breath sounds. Respirations even and unlabored. ABDOMEN: BS positive x 4 quadrants. Soft, nondistended, ttp across the lower quadrants. No guarding or rebound. MSK: No joint tenderness/swelling, fair strength in all extremities. PERIPHERAL VASCULAR: Peripheral pulses palpable. Normal perfusion, cap refill <2 seconds. No edema. NEURO: Follows commands. No focal deficits. SKIN: [place] without lesions or eruptions. PSYCH: Stable, no paranoia or delusional thinking. Objective Data Vital Signs Vital Signs: Vital Signs - 24 hr 10/28/23 14:00 10/28/23 16:00 10/28/23 19:43 Temperature 98.5 F 98.6 F Pulse Rate 93 94 94 Respiratory Rate 16 14 Blood Pressure 130/69 126/75 Pulse Oximetry 98 95 10/28/23 20:00 10/29/23 00:00 10/29/23 04:00 Temperature Pulse Rate 100 95 92 Respiratory Rate Blood Pressure Pulse Oximetry 10/29/23 04:43 10/29/23 08:00 10/29/23 12:00 Temperature 98.8 F Pulse Rate 92 82 87 Respiratory Rate 16 Blood Pressure 125/77 Pulse Oximetry 96 Intake/Output Intake/Output: Intake & Output 10/26/23 10/27/23 10/28/23 10/29/23 23:59 23:59 23:59 23:59 Intake Total 1050 3270 1100 Balance 1050 3270 1100 Meds/Results Medications: Active Medications Generic Name Dose Route Start Last Admin Trade Name Freq PRN Reason Stop Dose Admin Enoxaparin Sodium 40 mg 10/29/23 09:00 10/29/23 08:11 Enoxaparin 40 Mg/0.4 Ml Syringe SUB-Q Not Giv
--- NOTE | 2023-10-29 13:02 | PC.NURSE ---
Patient Platelet count was below 100,000 on am labs. Lovenox was held per protocol. Dr Tyson made aware when rounding on patient this am.
--- NOTE | 2023-10-29 14:51 | PM.PNGS ---
Progress Note: A&P Assessment and Plan (1) Diverticulitis of colon with perforation: Code(s): K57.20 - Diverticulitis of large intestine with perforation and abscess without bleeding Status: Acute Assessment and Plan: Patient is improving clinically. Abdominal tenderness on exam is decreased. White blood count is normalized. Remains afebrile and has no tachycardia. I think we can start some clear liquids today. If his abdominal exam continues to improve over the next day or 2 we can probably advance his diet. Do not feel a repeat CT scan is necessary at this time as he is improving clinically. Subjective Subjective Date/Time Seen: 10/29/23 14:51 Interval history: Patient now is hospital day 2 after being admitted for Sigmoid diverticulitis with micro perforation and no pelvic abscess. patient states his pain is better today. Continues to ask for IV narcotic pain medications. He is passing flatus but no bowel movements. No nausea or vomiting. White blood cell count has normalized. He has no fever or tachycardia. Remains on Zosyn for IV antibiotics. Exam Const: General: comfortable and no acute distress Resp: Effort & Inspection: normal respiratory effort Auscultation: clear to auscultation bilaterally Cardio: Rate: regular rate Rhythm: regular rhythm GI: Other: Abdomen is soft and nondistended. Has mild tenderness to palpation in suprapubic and left lower quadrant areas of the abdomen. He has some voluntary guarding but no evidence of peritoneal signs. Neuro: Speech: normal speech Psych: Mental Status: mental status grossly normal Affect: normal affect Objective Data Vital Signs Vital Signs: Vital Signs - 24 hr 10/28/23 16:00 10/28/23 19:43 10/28/23 20:00 Temperature 37.0 C Pulse Rate 94 94 100 Respiratory Rate 14 Blood Pressure 126/75 Pulse Oximetry 95 10/29/23 00:00 10/29/23 04:00 10/29/23 04:43 Temperature 37.1 C Pulse Rate 95 92 92 Respiratory Rate 16 Blood Pressure 125/77 Pulse Oximetry 96 10/29/23 08:00 10/29/23 12:00 Temperature Pulse Rate 82 87 Respiratory Rate Blood Pressure Pulse Oximetry Intake/Output Intake/Output: Intake & Output 10/26/23 10/27/23 10/28/23 10/29/23 23:59 23:59 23:59 23:59 Intake Total 1050 3270 1100 Balance 1050 3270 1100 Meds/Results Medications: Active Medications Generic Name Dose Route Start Last Admin Trade Name Freq PRN Reason Stop Dose Admin Enoxaparin Sodium 40 mg 10/29/23 09:00 10/29/23 08:11 Enoxaparin 40 Mg/0.4 Ml Syringe SUB-Q Not Given DAILY ANTONIO Hydromorphone HCl 1 mg 10/28/23 10:41 10/29/23 12:32 Hydromorphone Hcl Inj (*Crx) 1 Mg/Ml Syr IV PUSH 1 mg Q3H PRN Administration Pain Rated 7-10 Hydromorphone HCl 0.5 mg 10/28/23 10:41 Hydromorphone Hcl Inj (*Crx) 1 Mg/Ml Syr IV PUSH Q3H PRN Pain Rated 4-6 Sodium Chloride 1,000 mls @ 125 mls/hr 10/27/23 18:45 10/29/23 06:20 Normal Saline Iv IV CONT 125 mls/hr .Q8H ANTONIO Administration Piperacillin/Tazobactam/Dextrose 3.375 gm in 50 mls @ 100 mls/hr 10/28/23 09:00 10/29/23 08:40 Zosyn 3.375 Gm/Ns 50 Ml IVPB Infused Q6H ANTONIO Infusion Ondansetron HCl 4 mg 10/27/23 18:45 10/29/23 02:55 Ondansetron Inj 4 Mg/2 Ml Vial IV PUSH 4 mg Q4H PRN Administration Nausea Pantoprazole Sodium 40 mg 10/28/23 12:20 10/29/23 08:10 Pantoprazole Sodium Iv 40 Mg Vial IV PUSH 40 mg QAM ANTONIO Administration Radiology Results: ITS Impressions Abdomen/Pelvis CT 10/27/23 17:23 IMPRESSION: 1. Perforated sigmoid diverticulitis. No abscess. Labs Labs: Laboratory Results - last 24 hr 10/29/23 05:34 WBC 9.1 RBC 4.35 L Hgb 12.3 L Hct 37.3 L MCV 85.7 MCH 28.3 MCHC 33.0 RDW 12.8 Plt Count 95 L MPV 11.6 H % Immature Plt Fraction 7.1 Sodium 135 L Potassium 4.1 Chloride 106 Carbon Dioxide 21 L Anion Gap 8 BUN 12
[2023-10-29] MEDS: HYDROmorphone HCL INJ (*CRX) 1 MG/ML SYR 0.5 MG IV PUSH (15:58)
[2023-10-30] VITALS (9 sets, daily range): BP systolic 132–138; BP diastolic 78–86; PULSE 74–86; RESP 12–20; TEMP 36.6–36.9; O2SAT 96–99
[2023-10-30] MEDS: MELATONIN 3 MG TABLET 6 MG PO ×2 (00:34→20:25)
[2023-10-30] MEDS: ONDANSETRON INJ 4 MG/2 ML VIAL IV PUSH (00:35)
[2023-10-30] MEDS: SODIUM CHLORIDE 0.9% IV 1,000 ML 125 ML IV CONT ×3 (03:02→22:54)
[2023-10-30] MEDS: PIPERACILLN/TAZ 3.375GM/NS50ML 3.375 GM/50 ML BAG IVPB ×4 (03:03→20:25)
[2023-10-30] MEDS: HYDROmorphone HCL INJ (*CRX) 1 MG/ML SYR 0.5 MG IV PUSH (04:28)
[2023-10-30 06:02] LABS: Basophils Percent Auto 0.3 % (0.2-1.2); Eosinophils Percent Auto 0.3 % (0-4.4); Hematocrit 36.3 % (42.0-52.0); Hemoglobin 12.5 g/dL (14.0-18.0); Immature Granulocyte Absolute 0.02 K/mm3 (0.00-0.031); Immature Granulocyte Percent A 0.3 % (0-0.5); Immature Platelet Fraction Pct 7.1 % (0.9-11.2); Lymphocytes Absolute Auto 0.83 K/mm3 (0.9-3.2); Lymphocytes Percent Auto 13.7 % (18.3-44.2); Mean Corpuscular HGB Conc 34.4 g/dl (32-36); Mean Corpuscular Hemoglobin 28.9 pg (26-34); Mean Corpuscular Volume 83.8 fl (80-100); Mean Platelet Volume 11.9 fl (7.4-10.4); Monocytes Absolute Auto 0.4 K/mm3 (0.1-0.6); Monocytes Percent Auto 5.9 % (2.6-8.5); Neutrophils Absolute Auto 4.8 K/mm3 (1.3-6.7); Neutrophils Percent Auto 79.5 % (45.5-73.1); Platelet Count Result 104 k/mm3 (150-375); Red Blood Count 4.33 M/mm3 (4.6-6.20); Red Cell Distribution Width 12.4 % (11.5-14.5); White Blood Count 6.1 K/mm3 (4.5-10.0)
[2023-10-30 06:13] LABS: Alanine Aminotransferase 15 U/L (6-50); Albumin Level 3.3 g/dL (3.5-5.1); Alkaline Phosphatase 71 U/L (38-126); Anion Gap 9 mmol/L (8-16); Aspartate Amino Transferase 20 U/L (17-59); Blood Urea Nitrogen 8 mg/dL (9-20); Calcium 8.1 mg/dL (8.4-10.2); Carbon Dioxide 22 mmol/L (22-30); Chloride 106 mmol/L (98-107); Estimated CRCL calculation 105 ml/min; Estimated Glomerular Filt Rate > 60; Glucose 108 mg/dL (65-110); Magnesium 2.2 mg/dL (1.6-2.3); Potassium 3.7 mmol/L (3.4-5.0); Sodium 137 mmol/L (137-145)
[2023-10-30] MEDS: PANTOPRAZOLE SODIUM IV 40 MG VIAL IV PUSH (08:16)
[2023-10-30] MEDS: ENOXAPARIN 40 MG/0.4 ML SYRINGE SUB-Q (08:16)
--- NOTE | 2023-10-30 10:08 | PM.PNGS ---
Progress Note: A&P Assessment and Plan (1) Diverticulitis of colon with perforation: Code(s): K57.20 - Diverticulitis of large intestine with perforation and abscess without bleeding Status: Acute Assessment and Plan: exam much improved, WBC normal, ok to advance to low fiber diet, cont abx Subjective Subjective Date/Time Seen: 10/30/23 10:08 Interval history: feels better, shawn clears, pain improved Review of Systems Review of Systems: All systems reviewed & are unremarkable except as noted in HPI and below Exam Const: General: cooperative, comfortable and no acute distress Resp: Auscultation: clear to auscultation bilaterally Cardio: Rate: regular rate Rhythm: regular rhythm GI: Inspection: normal to inspection and distended GI Palp: Yes abdominal tenderness, Yes Soft to palpation, Yes Tenderness to palpation present (GI), No Guarding due to palpation present (GI) and No Rigid due to palpation Objective Data Vital Signs Vital Signs: Vital Signs - 24 hr 10/29/23 12:00 10/29/23 14:00 10/29/23 16:00 Temperature 37.1 C Pulse Rate 87 89 85 Respiratory Rate 18 Blood Pressure 123/67 Pulse Oximetry 96 10/29/23 21:20 10/29/23 20:00 10/30/23 00:00 Temperature 36.9 C Pulse Rate 85 85 83 Respiratory Rate 20 Blood Pressure 129/86 Pulse Oximetry 97 10/30/23 04:00 10/30/23 05:54 Temperature 36.9 C Pulse Rate 77 83 Respiratory Rate 20 Blood Pressure 136/78 Pulse Oximetry 96 Intake/Output Intake/Output: Intake & Output 10/27/23 10/28/23 10/29/23 10/30/23 23:59 23:59 23:59 23:59 Intake Total 1050 3270 2680 1475 Balance 1050 3270 2680 1475 Meds/Results Medications: Active Medications Generic Name Dose Route Start Last Admin Trade Name Freq PRN Reason Stop Dose Admin Enoxaparin Sodium 40 mg 10/29/23 09:00 10/30/23 08:16 Enoxaparin 40 Mg/0.4 Ml Syringe SUB-Q 40 mg DAILY ANTONIO Administration Hydromorphone HCl 1 mg 10/28/23 10:41 10/29/23 12:32 Hydromorphone Hcl Inj (*Crx) 1 Mg/Ml Syr IV PUSH 1 mg Q3H PRN Administration Pain Rated 7-10 Hydromorphone HCl 0.5 mg 10/28/23 10:41 10/30/23 04:28 Hydromorphone Hcl Inj (*Crx) 1 Mg/Ml Syr IV PUSH 0.5 mg Q3H PRN Administration Pain Rated 4-6 Sodium Chloride 1,000 mls @ 125 mls/hr 10/27/23 18:45 10/30/23 03:02 Normal Saline Iv IV CONT 125 mls/hr .Q8H ANTONIO Administration Piperacillin/Tazobactam/Dextrose 3.375 gm in 50 mls @ 100 mls/hr 10/28/23 09:00 10/30/23 08:15 Zosyn 3.375 Gm/Ns 50 Ml IVPB 100 mls/hr Q6H ANTONIO Administration Melatonin 6 mg 10/29/23 23:50 10/30/23 00:34 Melatonin 3 Mg Tablet PO 6 mg HS ANTONIO Administration Ondansetron HCl 4 mg 10/27/23 18:45 10/30/23 00:35 Ondansetron Inj 4 Mg/2 Ml Vial IV PUSH 4 mg Q4H PRN Administration Nausea Pantoprazole Sodium 40 mg 10/28/23 12:20 10/30/23 08:16 Pantoprazole Sodium Iv 40 Mg Vial IV PUSH 40 mg QAM ANTONIO Administration Radiology Results: ITS Impressions Abdomen/Pelvis CT 10/27/23 17:23 IMPRESSION: 1. Perforated sigmoid diverticulitis. No abscess. Labs Labs: Laboratory Results - last 24 hr 10/30/23 05:35 WBC 6.1 RBC 4.33 L Hgb 12.5 L Hct 36.3 L MCV 83.8 MCH 28.9 MCHC 34.4 RDW 12.4 Plt Count 104 L MPV 11.9 H Immature Gran % (Auto) 0.3 Neut % (Auto) 79.5 H Lymph % (Auto) 13.7 L [place] % (Auto) 5.9 Eos % (Auto) 0.3 Baso % (Auto) 0.3 Lymph # (Auto) 0.83 L [place] # (Auto) 0.4 Eos # (Auto) 0.0 Baso # (Auto) 0.0 Abs Immat Gran (auto) 0.02 Absolute Neuts (auto) 4.8 Absolute Nucleated RBC 0.0 Nucleated RBC % 0.0 % Immature Plt Fraction 7.1 Sodium 137 Potassium 3.7 Chloride 106 Carbon Dioxide 22 Anion Gap 9 BUN 8 L Creatinine 0.60 L Estim Creat Clear Calc 105 Estimated GFR > 60 Glucose 108 Calcium 8.1 L Magnesium 2.2 Total Bilirubin 1.0 AST 20 ALT 15 Alkaline Phosphatase 71 Tot
--- NOTE | 2023-10-30 13:52 | PM.IMPN ---
Progress Note: A&P Assessment and Plan (1) Perforation of sigmoid colon due to diverticulitis: Code(s): K57.20 - Diverticulitis of large intestine with perforation and abscess without bleeding Status: Acute (2) Fatty liver disease, nonalcoholic: Code(s): K76.0 - Fatty (change of) liver, not elsewhere classified Status: Acute (3) Chronic GERD: Code(s): K21.9 - Gastro-esophageal reflux disease without esophagitis Status: Acute (4) CONSTANCE (obstructive sleep apnea): Code(s): G47.33 - Obstructive sleep apnea (adult) (pediatric) Status: Acute Plan 58-year-old male presented with left-sided abdominal pain. Started 10/27/2023. On presentation was tachycardic in 140s, leukocytosis at 15.5. Urinalysis negative CT abdomen pelvis showed perforated sigmoid diverticulitis with no abscess. General surgery has been consulted. Plan on operative management. IV Zosyn and IV fluids ordered. No prior history of similar episodes in the past. Continues to improve on conservative management diet has been advanced to low residue today if tolerated plan for DC in a.m. on oral antibiotics CONSTANCE on CPAP Chronic GERD on PPI Fatty liver disease DVT prophylaxis Lovenox Thrombocytopenia new on Lovenox held. Will continue to monitor now. Could be related to IV antibiotics/sepsis/infection Diet per General surgery Subjective Date/time seen: 10/30/23 13:52 Interval history: Saw Meyers is a 58 year old male who presents with abdominal pain starting yesterday am. He denies history of similar. He awoke with pain across the lower abdomen. He does not report any GIB. The symptoms continued to worsen during the morning and he presented for evaluation. ED workup noted for leukocytosis and perforated diverticulitis. Surgery consulted and patient admitted on zosyn. 10/28: Pain still significant, not much relief from the 0.5mg of hydromorphone. 10/29/2023: Patient feels a little better today. Pain has improved. Still requiring IV pain medication. No nausea vomiting. Remains afebrile. Labs reviewed. 10/30/2023.: No overnight events. Feels much better. Pain is much less. No fever chills. Labs reviewed. Review of Systems Review of Systems: All systems reviewed & are unremarkable except as noted in HPI and below Exam Narrative: GENERAL APPEARANCE: Appears to be in no acute distress. HEAD: normocephalic atraumatic EYES: PERRL, EOMI. Vision grossly intact. ENT: Hearing grossly intact, no nasal discharge NECK: Neck supple, trachea midline. CARDIAC: Normal S1/S2. Rhythm is regular. No murmurs, rubs, or gallops. No cyanosis or pallor. Extremities are warm and well perfused. LUNGS: Clear to auscultation without rales, rhonchi, wheezing or diminished breath sounds. Respirations even and unlabored. ABDOMEN: BS positive x 4 quadrants. Soft, nondistended, ttp across the lower quadrants. No guarding or rebound. MSK: No joint tenderness/swelling, fair strength in all extremities. PERIPHERAL VASCULAR: Peripheral pulses palpable. Normal perfusion, cap refill <2 seconds. No edema. NEURO: Follows commands. No focal deficits. SKIN: [place] without lesions or eruptions. PSYCH: Stable, no paranoia or delusional thinking. Objective Data Vital Signs Vital Signs: Vital Signs - 24 hr 10/29/23 14:00 10/29/23 16:00 10/29/23 21:20 Temperature 98.7 F 98.4 F Pulse Rate 89 85 85 Respiratory Rate 18 20 Blood Pressure 123/67 129/86 Pulse Oximetry 96 97 10/29/23 20:00 10/30/23 00:00 10/30/23 04:00 Temperature Pulse Rate 85 83 77 Respiratory Rate Blood Pressure Pulse Oximetry 10/30/23 05:54 10/30/23 08:00 10/30/23 12:00 Temperature 98.5 F Pulse Rate 83 79 78 Respiratory Rate 20 Blood Pressure 136/78 Pulse Oximetry 96 Intake/Output Intake/Output: Intake & Output 10/27/23 10/28/23 10/29/23 10/30/23 23:59 23:59 23:59 23:59 Intake Total 1050 7730 8050 0735 Balance 1050 3
[2023-10-31] VITALS: PULSE 84
[2023-10-31] MEDS: PIPERACILLN/TAZ 3.375GM/NS50ML 3.375 GM/50 ML BAG IVPB ×3 (02:40→14:56)
[2023-10-31 04:00] VITALS: PULSE 81
[2023-10-31 05:08] VITALS: BP 136/82; PULSE 82; RESP 14; TEMP 36.9; O2SAT 98
[2023-10-31 06:22] LABS: Basophils Percent Auto 0.4 % (0.2-1.2); Eosinophils Absolute Auto 0.1 K/mm3 (0-0.3); Eosinophils Percent Auto 1.2 % (0-4.4); Immature Granulocyte Absolute 0.02 K/mm3 (0.00-0.031); Immature Granulocyte Percent A 0.4 % (0-0.5); Lymphocytes Absolute Auto 1.03 K/mm3 (0.9-3.2); Lymphocytes Percent Auto 19.9 % (18.3-44.2); Mean Corpuscular HGB Conc 34.2 g/dl (32-36); Mean Corpuscular Hemoglobin 28.3 pg (26-34); Mean Corpuscular Volume 82.8 fl (80-100); Mean Platelet Volume 11.2 fl (7.4-10.4); Monocytes Absolute Auto 0.4 K/mm3 (0.1-0.6); Monocytes Percent Auto 7.3 % (2.6-8.5); Neutrophils Absolute Auto 3.7 K/mm3 (1.3-6.7); Neutrophils Percent Auto 70.8 % (45.5-73.1); Platelet Count Result 147 k/mm3 (150-375); Red Blood Count 4.59 M/mm3 (4.6-6.20); Red Cell Distribution Width 12.4 % (11.5-14.5); White Blood Count 5.2 K/mm3 (4.5-10.0)
[2023-10-31 06:43] LABS: Alanine Aminotransferase 17 U/L (6-50); Albumin Level 3.3 g/dL (3.5-5.1); Alkaline Phosphatase 72 U/L (38-126); Anion Gap 7 mmol/L (8-16); Aspartate Amino Transferase 20 U/L (17-59); Bilirubin,Total 0.7 mg/dL (0.2-1.3); Blood Urea Nitrogen 10 mg/dL (9-20); Calcium 8.3 mg/dL (8.4-10.2); Carbon Dioxide 24 mmol/L (22-30); Chloride 106 mmol/L (98-107); Estimated CRCL calculation 105 ml/min; Estimated Glomerular Filt Rate > 60; Glucose 108 mg/dL (65-110); Magnesium 2.1 mg/dL (1.6-2.3); Potassium 3.5 mmol/L (3.4-5.0); Sodium 137 mmol/L (137-145)
[2023-10-31 08:00] VITALS: PULSE 83
[2023-10-31] MEDS: ENOXAPARIN 40 MG/0.4 ML SYRINGE SUB-Q (08:13)
[2023-10-31] MEDS: PANTOPRAZOLE SODIUM IV 40 MG VIAL IV PUSH (08:13)
[2023-10-31] MEDS: SODIUM CHLORIDE 0.9% IV 1,000 ML 125 ML IV CONT (08:17)
[2023-10-31] MEDS: NAPROXEN 500 MG TABLET PO (09:16)
--- NOTE | 2023-10-31 11:14 | PM.PNGS ---
Progress Note: A&P Assessment and Plan (1) Diverticulitis of colon with perforation: Code(s): K57.20 - Diverticulitis of large intestine with perforation and abscess without bleeding Status: Acute Assessment and Plan: exam benign, cont low fiber diet, ok to dc home c po abx from surgical standpoint, will need colonoscopy in 4-6 wks Subjective Subjective Date/Time Seen: 10/31/23 11:14 Interval history: shawn low fiber diet, abd pain completely resolved Review of Systems Review of Systems: All systems reviewed & are unremarkable except as noted in HPI and below Exam Const: General: cooperative, comfortable and no acute distress Resp: Auscultation: clear to auscultation bilaterally Cardio: Rate: regular rate Rhythm: regular rhythm GI: Inspection: normal to inspection and non-distended GI Palp: No abdominal tenderness, Yes Soft to palpation, No Tenderness to palpation present (GI), No Guarding due to palpation present (GI), No Rigid due to palpation and No Rebound tenderness present Objective Data Vital Signs Vital Signs: Vital Signs - 24 hr 10/30/23 12:00 10/30/23 13:59 10/30/23 16:00 Temperature 36.6 C Pulse Rate 78 81 74 Respiratory Rate 12 Blood Pressure 138/86 Pulse Oximetry 98 10/30/23 19:34 10/30/23 20:00 10/31/23 00:00 Temperature 36.7 C Pulse Rate 86 84 84 Respiratory Rate 16 Blood Pressure 132/84 Pulse Oximetry 99 10/31/23 04:00 10/31/23 05:08 10/31/23 08:00 Temperature 36.9 C Pulse Rate 81 82 83 Respiratory Rate 14 Blood Pressure 136/82 Pulse Oximetry 98 Intake/Output Intake/Output: Intake & Output 10/28/23 10/29/23 10/30/23 10/31/23 23:59 23:59 23:59 23:59 Intake Total 3270 2680 5085 2380 Balance 3270 2680 5085 2380 Meds/Results Medications: Active Medications Generic Name Dose Route Start Last Admin Trade Name Freq PRN Reason Stop Dose Admin Enoxaparin Sodium 40 mg 10/29/23 09:00 10/31/23 08:13 Enoxaparin 40 Mg/0.4 Ml Syringe SUB-Q 40 mg DAILY ANTONIO Administration Hydromorphone HCl 1 mg 10/28/23 10:41 10/29/23 12:32 Hydromorphone Hcl Inj (*Crx) 1 Mg/Ml Syr IV PUSH 1 mg Q3H PRN Administration Pain Rated 7-10 Hydromorphone HCl 0.5 mg 10/28/23 10:41 10/30/23 04:28 Hydromorphone Hcl Inj (*Crx) 1 Mg/Ml Syr IV PUSH 0.5 mg Q3H PRN Administration Pain Rated 4-6 Sodium Chloride 1,000 mls @ 125 mls/hr 10/27/23 18:45 10/31/23 08:17 Normal Saline Iv IV CONT 125 mls/hr .Q8H ANTONIO Administration Piperacillin/Tazobactam/Dextrose 3.375 gm in 50 mls @ 100 mls/hr 10/28/23 09:00 10/31/23 08:43 Zosyn 3.375 Gm/Ns 50 Ml IVPB Infused Q6H ANTONIO Infusion Melatonin 6 mg 10/29/23 23:50 10/30/23 20:25 Melatonin 3 Mg Tablet PO 6 mg HS ANTONIO Administration Naproxen 500 mg 10/30/23 11:17 10/31/23 09:16 Naproxen 500 Mg Tablet PO 11/06/23 11:16 500 mg BIDWM PRN Administration Headache Ondansetron HCl 4 mg 10/27/23 18:45 10/30/23 00:35 Ondansetron Inj 4 Mg/2 Ml Vial IV PUSH 4 mg Q4H PRN Administration Nausea Pantoprazole Sodium 40 mg 10/28/23 12:20 10/31/23 08:13 Pantoprazole Sodium Iv 40 Mg Vial IV PUSH 40 mg QAM ANTONIO Administration Radiology Results: ITS Impressions Abdomen/Pelvis CT 10/27/23 17:23 IMPRESSION: 1. Perforated sigmoid diverticulitis. No abscess. Labs Labs: Laboratory Results - last 24 hr 10/31/23 05:46 WBC 5.2 RBC 4.59 L Hgb 13.0 L Hct 38.0 L MCV 82.8 MCH 28.3 MCHC 34.2 RDW 12.4 Plt Count 147 L MPV 11.2 H Immature Gran % (Auto) 0.4 Neut % (Auto) 70.8 Lymph % (Auto) 19.9 [place] % (Auto) 7.3 Eos % (Auto) 1.2 Baso % (Auto) 0.4 Lymph # (Auto) 1.03 [place] # (Auto) 0.4 Eos # (Auto) 0.1 Baso # (Auto) 0.0 Abs Immat Gran (auto) 0.02 Absolute Neuts (auto) 3.7 Absolute Nucleated RBC 0.0 Nucleated RBC % 0.0 Sodium 137 Potassium 3.5 Chloride 106 Carbon Dioxide 2
[2023-10-31 12:00] VITALS: PULSE 72
--- NOTE | 2023-10-31 15:38 | PM.DS ---
DS: Admitting Diagnosis Discharge Date 10/31/2023 Admitting Diagnosis Abdominal pain DS: Discharge Diagnosis Discharge Diagnosis (1) Perforation of sigmoid colon due to diverticulitis: Code(s): K57.20 - Diverticulitis of large intestine with perforation and abscess without bleeding Status: Acute (2) Fatty liver disease, nonalcoholic: Code(s): K76.0 - Fatty (change of) liver, not elsewhere classified Status: Acute (3) Chronic GERD: Code(s): K21.9 - Gastro-esophageal reflux disease without esophagitis Status: Acute (4) CONSTANCE (obstructive sleep apnea): Code(s): G47.33 - Obstructive sleep apnea (adult) (pediatric) Status: Acute DS: Summary Hospital Course Hospital Course: 58-year-old male presented with left-sided abdominal pain. Started 10/27/2023. On presentation she was tachycardic in 140s, leukocytosis at 15.5. Urinalysis negative CT abdomen pelvis showed perforated sigmoid diverticulitis with no abscess. General surgery has been consulted. Plan on operative management. IV Zosyn and IV fluids ordered. No prior history of similar episodes in the past. Continues to improve on conservative management. Diet was slowly advanced to low residue diet. Significantly improved clinically. Tolerating diet okay per General surgery discharge. Need colonoscopy in 4-6 weeks as an outpatient basis infection CONSTANCE on CPAP Chronic GERD on PPI Fatty liver disease DVT prophylaxis Lovenox Thrombocytopenia new likely due to infection improved with the time of discharge. Right jonas numbness new on 10/31/2023. No back pain. Ultrasound duplex was done which ruled out DVT. Very mild improving already. Time Spent with Patient Time attestation: Total time spent providing and/or coordinating discharge services: 35 minutes Exam Narrative: GENERAL APPEARANCE: Appears to be in no acute distress. HEAD: normocephalic atraumatic EYES: PERRL, EOMI. Vision grossly intact. ENT: Hearing grossly intact, no nasal discharge NECK: Neck supple, trachea midline. CARDIAC: Normal S1/S2. Rhythm is regular. No murmurs, rubs, or gallops. No cyanosis or pallor. Extremities are warm and well perfused. LUNGS: Clear to auscultation without rales, rhonchi, wheezing or diminished breath sounds. Respirations even and unlabored. ABDOMEN: BS positive x 4 quadrants. Soft, nondistended, very mild tenderness in left lower quadrant. No guarding or rebound. MSK: No joint tenderness/swelling, fair strength in all extremities. PERIPHERAL VASCULAR: Peripheral pulses palpable. Normal perfusion, cap refill <2 seconds. No edema. NEURO: Follows commands. No focal deficits. SKIN: Bernie without lesions or eruptions. PSYCH: Stable, no paranoia or delusional thinking. DS: Data Data Completed and Pending Labs on day of discharge: Labs from last 24 hours 10/31/23 05:46 WBC 5.2 RBC 4.59 L Hgb 13.0 L Hct 38.0 L MCV 82.8 MCH 28.3 MCHC 34.2 RDW 12.4 Plt Count 147 L MPV 11.2 H Immature Gran % (Auto) 0.4 Neut % (Auto) 70.8 Lymph % (Auto) 19.9 [place] % (Auto) 7.3 Eos % (Auto) 1.2 Baso % (Auto) 0.4 Lymph # (Auto) 1.03 [place] # (Auto) 0.4 Eos # (Auto) 0.1 Baso # (Auto) 0.0 Abs Immat Gran (auto) 0.02 Absolute Neuts (auto) 3.7 Absolute Nucleated RBC 0.0 Nucleated RBC % 0.0 Sodium 137 Potassium 3.5 Chloride 106 Carbon Dioxide 24 Anion Gap 7 L BUN 10 Creatinine 0.60 L Estim Creat Clear Calc 105 Estimated GFR > 60 Glucose 108 Calcium 8.3 L Magnesium 2.1 Total Bilirubin 0.7 AST 20 ALT 17 Alkaline Phosphatase 72 Total Protein 6.0 L Albumin 3.3 L Preliminary micro results at discharge 10/27/23 18:29 Blood Culture - Preliminary Blood 10/27/23 18:22 Blood Culture - Preliminary Blood Imaging Radiologist's impression: ITS Impressions Abdomen/Pelvis CT 10/27/23 17:23 IMPRESSION: 1. Perforated sigmoid diverticulitis. No abscess. Venous Doppler Study
== END 2023-10-31 16:11 | disposition home or self-care (01) | DRG 392 ==
LOC: ANHED 19:11 → ANH3MED 21:04
PROVIDERS: Nurse Practitioner Family; Student in an Organized Health Care Education/Training Program; Admitting Provider Family Medicine; Emergency Provider Emergency Medicine; PCP Family Medicine; Visit Provider Internal Medicine
DX: K57.20 Diverticulitis of large intestine with perforation and abscess without bleeding (principal); K76.0 Fatty (change of) liver, not elsewhere classified; K21.9 Gastro-esophageal reflux disease without esophagitis; G47.33 Obstructive sleep apnea (adult) (pediatric); D69.6 Thrombocytopenia, unspecified; N40.0 Benign prostatic hyperplasia without lower urinary tract symptoms; R20.0 Anesthesia of skin
CPT/HCPCS: 36415; 74177; 80048; 80053; 81003; 83690; 83735; 85025; 85027; 85055; 85610; 85730; 87040; 93005; 93971; 96361; 96365; 96375; 96376; 99285; A9270; C9113; G0378; J1170; J1650; J2405; J2543; J7030; Q9967

== ENCOUNTER 2024-01-17 00:09 | Day surgery (SDC) | payer BC, SELFPAY ==
[2023-12-21 11:35] VITALS: BMI 30.7
--- NOTE | 2024-01-14 10:41 | SUR.PREOP ---
Patient called regarding upcoming procedure. Reviewed preop instructions, appointment times, and procedure prep.
--- NOTE | 2024-01-14 13:09 | PM.HPGS ---
History of Present Illness History of Present Illness Consent: Risks, benefits, and alternatives have been discussed and questions answered. Patient agrees to proceed with procedure. Chief complaint: Diverticulitis large intestine w/ perforation Narrative: Saw Meyers is a 58 year old male Referred for colonoscopy due to recent episodes of apparent diverticulitis, 1 in late September another in late October both treated with antibiotics. He was hospitalized for the 1st episode. Review of Systems Review of Systems: All systems reviewed & are unremarkable except as noted in HPI and below PMFSH Past Medical History Medical History Benign prostatic hyperplasia Chronic GERD Elevated BP without diagnosis of hypertension Shortness of breath Family History Family History Father Hypertension Family history of diabetes mellitus in first degree relative Social History Social History Smoking status: Never smoker Second hand tobacco smoke exposure: Yes Alcohol intake: never Alcohol use details: rarely Substance use: never Lack of Transportation: No Lack of Food: Never True Current Housing: I Have Housing Concerned About Future Housing: No Difficulty Paying Gas/Electric Bills: No Difficulty Paying for Meds: No Currently Unemployed: No Education: Don't Know Difficulty w/ Childcare or Family Care: No Living arrangements: with family Spiritual care concerns: No Meds Home Medications and Allergies Home Medications Medication Instructions Recorded Confirmed Type finasteride 5 mg tablet 5 mg PO HS 10/27/23 01/17/24 History pantoprazole 40 mg tablet,delayed 40 mg PO QAM 10/27/23 01/17/24 History release ibuprofen 800 mg tablet 800 mg PO TID pain #60 tabs 12/17/23 01/17/24 Rx Allergies Allergy/AdvReac Type Severity Reaction Status Date / Time No Known Allergies Allergy Verified 01/17/24 06:15 Exam Const: General: alert Orientation/consciousness: patient oriented x3 Resp: Auscultation: clear to auscultation bilaterally Cardio: Rhythm: regular rhythm GI: GI Palp: Yes Soft to palpation and No Tenderness to palpation present (GI) Neuro: General: patient oriented x3 Assessment and Plan Assessment and plan (1) Diverticulitis of colon with perforation: Code(s): K57.20 - Diverticulitis of large intestine with perforation and abscess without bleeding Status: Acute Assessment and Plan: Colonoscopy with possible biopsy or polypectomy or cautery or injection of substances.
[2024-01-17 06:17] VITALS: BP 139/99; PULSE 8; RESP 16; TEMP 36.2; O2SAT 99
[2024-01-17] MEDS: LACTATED RINGERS 1,000 ML 150 ML IV CONT (06:29)
--- NOTE | 2024-01-17 07:24 | P.PNAN_ITS ---
Anes - Initial Pre Proc Eval Procedure: Operation Date: 01/17/24 07:30 Proposed Procedures p Colonoscopy - Vignesh Rivero MD Date/Time: 01/17/24 07:24 Surgeon: Vignesh Rivero MD Pre Op Diagnosis: Diverticulitis large intestine w/ perforation Patient Data Age: 58 Gender: M Height: 1.68 m Weight: 86.8 kg Last Vital Signs Temp 97.1 F L 01/17/24 06:17 Pulse 8 L 01/17/24 06:17 Resp 16 01/17/24 06:17 BP 139/99 H 01/17/24 06:17 Pulse Ox 99 01/17/24 06:17 O2 Del Method Room Air 01/17/24 06:17 Allergies Allergy/AdvReac Type Severity Reaction Status Date / Time No Known Allergies Allergy Verified 01/17/24 06:15 Home Medications Medication Instructions Recorded Confirmed Type finasteride 5 mg tablet 5 mg PO HS 10/27/23 01/17/24 History pantoprazole 40 mg tablet,delayed 40 mg PO QAM 10/27/23 01/17/24 History release ibuprofen 800 mg tablet 800 mg PO TID pain #60 tabs 12/17/23 01/17/24 Rx Patient hx anesthesia problems: none Family hx anesthesia problems: none Results Review: All pre-operative results and documents have been reviewed as part of the pre- operative evaluation. [facility] Past Medical History Medical History Benign prostatic hyperplasia Chronic GERD Elevated BP without diagnosis of hypertension Shortness of breath Family History Family History Father Hypertension Family history of diabetes mellitus in first degree relative Social History Social History Smoking status: Never smoker Second hand tobacco smoke exposure: Yes Alcohol intake: never Alcohol use details: rarely Substance use: never Lack of Transportation: No Lack of Food: Never True Current Housing: I Have Housing Concerned About Future Housing: No Difficulty Paying Gas/Electric Bills: No Difficulty Paying for Meds: No Currently Unemployed: No Education: Don't Know Difficulty w/ Childcare or Family Care: No Living arrangements: with family Spiritual care concerns: No Anes - Eval Final PreProcedure Day of Procedure 01/17/24 07:24 Patient weight: obese Heart: regular rate and rhythm Lungs: clear to auscultation Airway: Mallampati scale class II Neurological: alert and oriented Last oral intake: >/= 8 hours ASA classification: III Emergent: no Anesthetic plan: proceed Anesthesia type and monitoring: general GIVS and standard monitoring Results Review: All pre-operative results and documents have been reviewed as part of the pre- operative evaluation. Informed Consent: The patient's anesthetic plan and its attendant risks and benefits were discussed with the patient/family/POA. Questions were solicited and answers provided to the satisfaction of the patient/family/POA.
[2024-01-17 07:45] VITALS: BP 115/78; PULSE 83; RESP 19; O2SAT 98
[2024-01-17 07:55] VITALS: BP 131/87; PULSE 80; RESP 20; O2SAT 100
[2024-01-17 08:05] VITALS: BP 147/96; PULSE 69; RESP 19; O2SAT 100
== END 2024-01-17 08:11 | disposition home or self-care (01) ==
PROVIDERS: PCP Nurse Practitioner; Visit Provider Internal Medicine Gastroenterology
PROC: 0DJD8ZZ Inspection of Lower Intestinal Tract, Via Natural or Artificial Opening Endoscopic (ICD-10-PCS; CPT 45378; principal; 2024-01-17 07:30)
DX: K57.20 Diverticulitis of large intestine with perforation and abscess without bleeding (principal); D12.5 Benign neoplasm of sigmoid colon; K64.8 Other hemorrhoids; K57.30 Diverticulosis of large intestine without perforation or abscess without bleeding; K21.9 Gastro-esophageal reflux disease without esophagitis
CPT/HCPCS: 45385; 88305; J2704; J7120

== ENCOUNTER 2025-11-19 22:56 | Observation (INO) | payer BC, SELFPAY ==
--- NOTE | ~2025-11-19 | XR_ITS ---
Examination: XR chest 2V Clinical History: chest pain, sob with inhalation Comparison: 01/19/2022 Technique: PA and Lateral Findings: Cardiomediastinal silhouette normal size and configuration. Lungs clear. No acute bony abnormality. IMPRESSION: 1. No acute cardiopulmonary findings. Reviewed, dictated and finalized at location R. 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
[2025-11-19 23:06] VITALS: BP 155/108; PULSE 92; RESP 16; TEMP 36.7; O2SAT 98
--- NOTE | 2025-11-19 23:10 | ECG_ITS ---
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
[2025-11-19 23:28] LABS: Hematocrit 45.2 % (42.0-52.0); Hemoglobin 15.6 g/dL (14.0-18.0); Immature Granulocyte Percent A 0.0 % (0-0.5); Immature Platelet Fraction Pct 6.1 % (0.9-11.2); Lymphocytes Absolute Auto 2.07 K/mm3 (0.9-3.2); Mean Corpuscular HGB Conc 34.5 g/dl (32-36); Mean Corpuscular Hemoglobin 28.8 pg (26-34); Mean Corpuscular Volume 83.5 fl (80-100); Nucleated Red Blood Cells Absolute Auto 0.000 K/mm3 (0.0-0.012); Nucleated Red Blood Cells Perc 0.0 % (0.0-0.2); Platelet Count Result 134 k/mm3 (150-375); Red Blood Count 5.41 M/mm3 (4.6-6.20); White Blood Count 6.0 K/mm3 (4.5-10.0)
[2025-11-19 23:37] LABS: Alanine Aminotransferase 27 U/L (6-50); Albumin Level 4.2 g/dL (3.5-5.1); Alkaline Phosphatase 147 U/L (38-126); Anion Gap 8 mmol/L (4-12); Aspartate Amino Transferase 40 U/L (17-59); Bilirubin,Total 0.5 mg/dL (0.2-1.3); Blood Urea Nitrogen 18 mg/dL (9-20); Calcium 8.7 mg/dL (8.4-10.2); Carbon Dioxide 24 mmol/L (22-30); Chloride 105 mmol/L (98-107); Estimated CRCL calculation 90 ml/min; Estimated Glomerular Filt Rate > 60; Glucose 128 mg/dL (65-110); Lipase 99 U/L (23-300); Potassium 3.9 mmol/L (3.4-5.0); Sodium 137 mmol/L (137-145); Total Protein 7.1 g/dL (6.3-8.2)
[2025-11-19 23:38] LABS: INR 0.9; Prothrombin Time 12.1 Seconds (11.1-14.7)
[2025-11-19 23:39] LABS: Partial Thromboplastin Time 28.2 Seconds (22.3-36.8)
[2025-11-19 23:50] LABS: Troponin I 0.609 ng/mL (0.000-0.034)
[2025-11-20] VITALS (53 sets, daily range): BP systolic 114–161; BP diastolic 81–117; PULSE 67–99; RESP 11–24; TEMP 36.3–36.4; O2SAT 94–100; BMI 29.9
--- NOTE | 2025-11-20 | ECHO_ITS ---
Patient Info Name: Saw Meyers Age: 60 years : 1965 Gender: Male Ht: 66 in Wt: 185 lbs BSA: 2.00 m2 HR: 88 bpm BP: 127 / 90 mmHg Heart Rhythm: Sinus Rhythm Technical Quality: Fair Exam Date: 11/20/2025 12:42 PM Patient Status: O Admit Date: 11/20/2025 Exam Type: CA echo dop color flow w con Complete two-dimensional, color flow and Doppler transthoracic echocardiogram is performed with contrast to opacify the left ventricle and to improve the deliniation of the left ventricle endocardial borders. Staff Referring Physician: Teodoro Espinoza MD Assembly Line Supervisor: Lizette Laws Attending Provider: Nicci Turcios DO Contrast/Agitated Saline Contrast/Ag. Saline: Definity Amount: 2.00 ml Administered By: Lizette Laws Existing IV Access: Yes IV Access Condition: patent with no signs of infiltration Summary 1. Normal LV size, [id number] LVH, normal overall LV systolic function, ejection fraction about 60-65%; mid anterior segment appears mildly hypokinetic. Grade 1 diastolic dysfunction. Normal RV size and systolic function. No significant valvular abnormality. Left Ventricle Left ventricular chamber dimension is normal. Left ventricular systolic function is normal, estimated at 65-70. There is moderately increased left ventricular wall thickness. The left ventricular diastolic function is grade I diastolic dysfunction. Right Ventricle Right ventricular chamber dimension is normal. Right ventricular systolic function is normal. Left Atria Left atrial chamber dimension is normal. Right Atria Right atrial chamber dimension is normal. Aortic Valve The aortic valve is normal. There is no aortic valve stenosis. Pulmonic Valve The pulmonic valve is normal. Mitral Valve The mitral valve has normal leaflets. Tricuspid Valve The tricuspid valve leaflets are normal. There is trace tricuspid valve regurgitation. Pericardium/Pleural The pericardium appears normal. Aorta The aortic root size at the sinus of Valsalva is normal. Left Ventricular Outflow Tract Name Value Normal LVOT 2D LVOT Diameter 2.0 cm LVOT Doppler LVOT Peak Velocity 65 cm/s LVOT Peak Gradient 2 mmHg LVOT Mean Gradient 1 mmHg LVOT VTI 14 cm LVOT VTI/AV VTI Ratio 0.7 LVOT Stroke Volume 44 ml LVOT CO 3.0 l/min LVOT CI 1.5 l/min/m2 Pulmonic Valve Name Value Normal RVOT Doppler RVOT Peak Velocity 68 cm/s RVOT Peak Gradient 2 mmHg PV Doppler PV Peak Velocity 103 cm/s PV Peak Gradient 4 mmHg Mitral Valve Name Value Normal MV Diastolic Function MV E Peak Velocity 49 cm/s MV A Peak Velocity 58 cm/s MV E/A 0.8 MV Decel Time (PW) 198 ms MV Annular TDI MV E/e' (Septal) 10.6 MV E/e' (Lateral) 7.8 MV E/e' (Average) 9.2 Tricuspid Valve Name Value Normal TV Regurgitation Doppler TR Peak Velocity 187 cm/s TR Peak Gradient 14 mmHg Estimated PAP/RSVP RA Pressure 5 mmHg <=5 PA Systolic Pressure 19 mmHg <36 RV Systolic Pressure 19 mmHg <36 TV Annular TDI TV Lateral Trini s' Velocity 12.4 cm/s >=9.5 Aorta Name Value Normal Ascending Aorta Ao Root Diameter (MM) 3.4 cm Ao Root Diam Index (MM) 1.7 cm/m2 Aortic Valve Name Value Normal AV Doppler AV Peak Velocity 113 cm/s AV Peak Gradient 5 mmHg AV Mean Gradient 3 mmHg AV VTI 19 cm AV Area (Cont Eq VTI) 2.3 cm2 >=3.0 AV Area (Cont Eq Gallo) 1.8 cm2 AV DI (Gallo) 0.57 AV Regurgitation 2D LVOT Area 3.2 cm2 Ventricles Name Value Normal LV Dimensions 2D/MM IVS Diastolic Thickness (2D) 1.4 cm 0.6-1.0 LVID Diastole (2D) 4.4 cm 4.2-5.8 LVIW Diastolic Thickness (2D) 1.1 cm 0.6-1.0 LVID Systole (2D) 2.7 cm 2.5-4.0 LVOT Diameter 2.0 cm LV Mass (2D Cubed) 202.55 g 88.00-224.00 LV Mass Index (2D Cubed) 101 g/m2 49-115 Relative Wall Thickness (2D) 0.48 <=0.42 LV Fractional Shortening/Ejection Fraction 2D/MM LV Fractional Shortening (2D) 39 % 25-43 LV EF (2D Teichholz) 70 % LV Diastolic Volume (4C MOD) 63 ml LV EF (4C MOD) 60 % LV Diastolic Volume (2C MOD) 53 ml LV EF (2C MOD) 68 % LV Diastolic Volume (BP MOD) 58 ml 62-150 LV Diastolic Volume Index (BP MOD) 29 ml/m2 34-74 LV Systolic Volume (BP MOD) 21 ml 21-61 LV Systolic Volume Index (BP MOD) 10 ml/m2 11-31 LV EF (BP MOD) 64 % 52-72 LV Diastolic Length (4C) 7.2 cm LV Systolic Length (4C) 6.3 cm LV Stroke Volume (4C MOD) 38 ml Atria Name Value Normal LA Dimensions LA Dimension (MM) 4.0 cm 3.0-4.0 LA Volume (4C A-L) 31 ml LA Volume (BP A-L) 41 ml RA Dimensions RA Area (4C) 12.8 cm2 <=18.0 Report Signatures
--- OUTSIDE RECORDS SUMMARY | 2025-11-20 00:10 | XMS_ITS | Encounter Summary ---
Author Organization [facility] Address [address] [place] [address] Care Team Providers Care Thrasher Feeder Name Role Phone Anmol Rojas MD Primary Care Provider + Encounter Details Date Type Department Care Team (Late st Contact Info) Description 03/23/2016 Lab Requisition [facility] [address] [place] [phone] Viktor Gannon MD NO ADDRESS ON FILE Encounter for general adult medical examination without abnormal findings Social History Tobacco Use Types Packs/Day Years Used Date Smoking Tobacco: Never Assessed Sex and Gender Information Value Date Recorded Sex Assigned at Not on file Legal Sex Male 12:33 PM CDT Gender Identity Not on file Sexual Orientation Not on file documented as of this encounter Plan of Treatment Not on file documented as of this encounter Procedures Procedure Name Priority Date/Time Associated Diagnosis Comments CBC WITH DIFFERENTIAL Routine 03/23/2016 9:13 AM CDT Encounter for general adult medical examination without abnormal findings LIPID PANEL Routine 03/23/2016 9:13 AM CDT Encounter for general adult medical examination without abnormal findings COMPREHENSIVE METABOLIC PANEL Routine 03/23/2016 9:13 AM CDT Encounter for general adult medical examination without abnormal findings documented in this encounter Results * (ABNORMAL) CBC WITH DIFFERENTIAL (03/23/2016 9:13 AM CDT) [facility] WBC 3.3(L) 4.0 - 9.8 K/uL 03/23/2016 9:14 PM CDT [facility] RBC 5.47(H) 4.50 - 5.40 M/uL 03/23/2016 9:14 PM CDT [facility] HEMOGLOBIN 15.3 13.6 - 16.5 g/dL 03/23/2016 9:14 PM CDT [facility] HEMATOCRIT 47.1 40.0 - 48.0 % 03/23/2016 9:14 PM CDT [facility] MCV 86.1 82.0 - 99.0 fL 03/23/2016 9:14 PM CDT [facility] MCH 28.0 27.2 - 32.6 pg 03/23/2016 9:14 PM CDT [facility] MCHC 32.5 31.5 - 35.5 g/dL 03/23/2016 9:14 PM CDT [facility] RDW 12.8 11.5 - 14.5 % 03/23/2016 9:14 PM CDT [facility] RDW-STDEV 39.9 37.1 - 48.7 fL 03/23/2016 9:14 PM CDT [facility] PLATELETS 104(L) 140 - 350 K/uL 03/23/2016 9:14 PM CDT [facility] MPV 14.1(H) 9.3 - 12.4 fL 03/23/2016 9:14 PM CDT [facility] NEUTROPHILS 48 45 - 70 % 03/23/2016 9:14 PM CDT [facility] LYMPHOCYTES 37 16 - 45 % 03/23/2016 9:14 PM CDT [facility] MONOCYTES 11 3 - 13 % 03/23/2016 9:14 PM CDT [facility] EOSINOPHILS 3 <=8 % 03/23/2016 9:14 PM CDT [facility] BASOPHILS 1 <=2 % 03/23/2016 9:14 PM CDT [facility] NEUTROPHIL ABSOLUTE 1.57(L) 1.90 - 7.00 K/uL 03/23/2016 9:14 PM CDT [facility] LYMPHOCYTE ABSOLUTE 1.21 0.70 - 4.50 K/uL 03/23/2016 9:14 PM CDT [facility] MONOCYTE ABSOLUTE 0.37 0.10 - 1.30 K/uL 03/23/2016 9:14 PM CDT [facility] EOSINOPHIL ABSOLUTE 0.11 <0.80 K/uL 03/23/2016 9:14 PM CDT [facility] BASOPHILS ABSOLUTE 0.02 <=0.20 K/uL 03/23/2016 9:14 PM CDT [facility] IMMATURE GRANULOCYTES 0 <=0 % 03/23/2016 9:14 PM CDT [facility] IMMATURE GRANULOCYTES ABSOLUTE 0.01 0.00 - 0.03 K/uL 03/23/2016 9:14 PM T [facility] Blood 03/23/2016 9:13 AM CDT 03/23/2016 8:08 PM CDT Viktor Gannon MD HEMATOLOGY ORDERABLES Final Result [facility]# [id number] [address] [place], [place] [id number] * (ABNORMAL) LIPID PANEL (03/23/2016 9:13 AM CDT) [facility] CHOLESTEROL 199 <200 mg/dL 03/23/2016 9:52 PM CDT [facility] TRIGLYCERIDE 85 <150 mg/dL 03/23/2016 9:52 PM T [facility] HDL 58 40 - 59 mg/dL 03/23/2016 9:52 PM T [facility] LDL CALCULATED 124(H) <100 mg/dL 03/23/2016 9:52 PM T [facility] NON-HDL CHOLESTEROL 141(H) <130 mg/dL 03/23/2016 9:52 PM T [facility] Blood 03/23/2016 9:13 AM CDT 03/23/2016 8:08 PM CDT Narrative [facility] - 03/23/2016 9:52 PM CDT TOTAL CHOLESTEROL mg/dL Desirable <200 Borderline high 200-239 High >=240 TRIGLYCERIDES mg/dL Normal <150 Borderline high 150-199 High 200-499 Very high >=500 HDL CHOLESTEROL mg/dL Low <40 Normal 40-59 Desirable >=60 LDL CHOLESTEROL mg/dL Optimal <100 Low risk 100-129 Borderline high 130-159 High 160-189 Very high >=190 NON HDL CHOLESTEROL mg/dL Optimal <130 Near Optimal 130-159 Borderline High 160-189 High 190-219 Very high >=220 Based on AHA/NCEP Guidelines us Viktor Gannon MD CHEMISTRY ORDERABLES F inal Result [facility] - [facility]# [id number] [address] [place] [address] * (ABNORMAL) COMPREHENSIVE METABOLIC PANEL (03/23/2016 9:13 AM CDT) SODIUM 141 136 - 145 mmol/L 03/23/2016 9:54 PM CDT [facility] POTASSIUM 5.0 3.5 - 5.0 mmol/L 03/23/2016 9:54 PM CDT [facility] CHLORIDE 103 98 - 107 mmol/L 03/23/2016 9:54 PM CDT [facility] CO2 26 22 - 29 mmol/L 03/23/2016 9:54 PM CDT [facility] CALCIUM 9.4 8.6 - 10.2 mg/dL 03/23/2016 9:54 PM CDT [facility] BUN 22(H) 6 - 20 mg/dL 03/23/2016 9:54 PM CDT [facility] CREATININE 0.93 0.67 - 1.17 mg/dL 03/23/2016 9:54 PM CDT [facility] . [facility] GLUCOSE 104(H) 79 - 99 mg/dL 03/23/2016 9:54 PM CDT [facility] . [facility] TOTAL PROTEIN 6.9 6.7 - 8.6 g/dL 03/23/2016 9:54 PM CDT [facility] - [facility] ALBUMIN 4.4 3.5 - 5.2 g/dL 03/23/2016 9:54 PM T [facility] BILIRUBIN TOTAL 0.5 0.3 - 1.2 mg/dL 03/23/2016 9:54 PM T [facility] - [facility] ALKALINE PHOSPHATASE 90 40 - 129 U/L 03/23/2016 9:54 PM [facility] AST 25 <41 U/L 03/23/2016 9:54 PM T [facility] ALT 37 <42 U/L 03/23/2016 9:54 PM [facility] - [facility] GFR >60 >=60 mL/min/1.7 3 sq meter 03/23/2016 9:54 PM T [facility] - [facility] Comment: eGFR has not been validated for use in the elderly (> 70 years of age), women, patients with serious co-morbid conditions, or persons with extremes of body size or muscle mass and should also be interpreted with caution in patients with acute kidney failure, dialysis dependent patients, patients reporting exceptional dietary intake (e.g. vegetarian diet, high protein diets, creatine supplementation), and patients with severe liver disease. Based on National Kidney Disease Education Program If patient is , please refer to the GFR result. GFR, >60 >=60 mL/min/1.7 3 sq meter 03/23/2016 9:54 PM CDT [facility] - [facility] ANION GAP 12 8 - 16 mmol/L 03/23/2016 9:54 PM [facility] Blood 03/23/2016 9:13 AM CDT 03/23/2016 8:08 PM CDT us Viktor Gannon MD CHEMISTRY ORDERABLES F inal Result [facility]# [id number] [address] [place] [address] documented in this encounter Visit Diagnoses Diagnosis Encounter for general adult medical examination without abnormal findings Routine general medical examination at a health care facility documented in this encounter Care Teams Thrasher Feeder Relationship Specialty Start Date End Date Anmol Rojas MD PCP - General Internal Medicine 03/23/16 documented as of this encounter
--- OUTSIDE RECORDS SUMMARY | 2025-11-20 00:10 | XMS_ITS | Clinical Summary ---
Author Organization [facility] Address [address] [place] [phone] Care Team Providers Care Tool Coordinator Name Role Phone Anmol Rojas MD Primary Care Provider + Social History Tobacco Use Types Packs/Day Years Used Date Smoking Tobacco: Never Assessed Sex and Gender Information Value Date Recorded Sex Assigned at Not on file Legal Sex Male 12:33 PM CDT Gender Identity Not on file Sexual Orientation Not on file Plan of Treatment Health Maintenance Due Date Last Done Comments DTAP/TDAP/TD VACCINES (1 - Tdap) 1986 HEPATITIS B VACCINES (1 of 3 - 19+ 3-dose series) 12/1985 COLORECTAL SCREENING 2012 Colorectal Cancer Screening 2012 FIT-DNA Q 3 years 2012 FIT/FOBT Q 1 year 2012 Flex Sig/CT Colonography Q 5 years 2012 ZOSTER VACCINE (1 of 2) 2017 INFLUENZA VACCINE (#1) 2025 Care Teams Tool Coordinator Relationship Specialty Start Date End Date Anmol Rojas MD PCP - General Internal Medicine 03/23/16
--- OUTSIDE RECORDS SUMMARY | 2025-11-20 00:10 | XMS_ITS | Clinical Summary ---
Author Organization [facility] [address] Address [address] [place] [address] Care Team Providers Care Tanning Wheel Operator Name Role Phone Anmol Rojas MD Primary Care Provider [phone] Allergies No known active allergies Medications finasteride (PROSCAR) 5 mg tablet Take 5 mg by mouth daily. Active pantoprazole DR (PROTONIX) 40 mg EC tablet Take 40 mg by mouth daily. Active Active Problems Problem Noted Date Diagnosed Date Gastroesophageal reflux disease without esophagi tis 12/31/2017 Dyslipidemia 12/31/2017 Chest pain 12/31/2017 Shortness of breath 12/31/2017 Lipid screening 12/31/2017 Surgical History Surgery Date Site/Laterality Comments NASAL SEPTUM SURGERY TONSILLECTOMY/ADENOIDECTOMY Medical History Medical History Date Comments Hypertension Hyperlipidemia GERD (gastroesophageal reflux disease) Family History Medical History Relation Name Comments Cerebral aneurysm Father Hypertension Father Heart attack Mother Relation Name Status Comments Father (Age 62) Mother (Age 86) Social History Tobacco Use Types Packs/Day Years Used Date Smoking Tobacco: Every Day Cigarettes Smokeless Tobacco: Never Alcohol Use Standard Drinks/Week Comments Yes 0 (1 standard drink = 0.6 oz pur e alcohol) rarely Personal Safety Answer Date Recorded Getting School Help Needed Not on file 02/10 Sex and Gender Information Value Date Recorded Sex Assigned at Not on file Legal Sex Male 2:30 AM PRINT SUPPORT SPECIALIST Gender Identity Not on file Sexual Orientation Not on file Last Filed Vital Signs Vital Sign Reading Time Taken Comments Blood Pressure 136/92 03/02/2018 3:03 PM CDT Pulse 103 03/02/2018 3:03 PM CDT Temperature - - Respiratory Rate - - Oxygen Saturation 96% 03/02/2018 3:03 PM CDT Inhaled Oxygen Concentration - - Weight 91.6 kg (202 lb) 03/02/2018 3:03 PM CDT Height 167.6 cm (5' 6) 03/02/2018 3:03 PM CDT Body Mass Index 32.6 03/02/2018 3:03 PM CDT Plan of Treatment Not on [place] [address] [facility] [place] [address] [address] Care Teams Tanning Wheel Operator Relationship Specialty Start Date End Date Anmol Rojas MD PCP - General Internal Medicine 12/31/17
[2025-11-20] MEDS: ASPIRIN 81 MG CHEWABLE TABLET 324 MG PO (00:12)
--- NOTE | 2025-11-20 00:17 | ED_ITS ---
HPI - General Adult General Chief complaint: Chest Pain Stated complaint: chest pain Time Seen by Provider: 11/19/25 23:55 History of Present Illness HPI narrative: Patient 60-year-old gentleman presents emergency department with chief complaint of chest pain patient reports that since Wednesday he has been having intermittent discomfort in his chest patient reports that he has had some shortness of breath worse with exertion patient reports the pain is worse whenever he lays back reports that it is a pressure heaviness patient does report that several years ago he had a stress test that was negative patient reports that he initially thought this was reflux and is taking his Protonix and also other anti acids to try to calm the discomfort without success Related Data Allergies Allergy/AdvReac Type Severity Reaction Status Date / Time No Known Allergies Allergy Verified 11/19/25 22:57 Review of Systems 2 Review of Systems: A 10 system review of systems was completed on the patient and is negative except for what is stated in the HPI. Nursing and ancillary documentation was reviewed. [facility] Past Medical History Medical History Shortness of breath Elevated BP without diagnosis of hypertension Benign prostatic hyperplasia Chronic GERD Family History Family History Father Hypertension Family history of diabetes mellitus in first degree relative Social History Social History Smoking status: Never smoker Second hand tobacco smoke exposure: Yes Alcohol intake: never Alcohol use details: rarely Substance use: never Lack of Transportation: No Lack of Food: Never True Current Housing: I Have Housing Concerned About Future Housing: No Difficulty Paying Gas/Electric Bills: No Difficulty Paying for Meds: No Currently Unemployed: No Education: Don't Know Difficulty w/ Childcare or Family Care: No Living arrangements: with family Spiritual care concerns: No Exam 2 Narrative: GENERAL: Well-appearing, well-nourished, and in no acute distress. HEAD: Normocephalic, atraumatic. EYES: PERRLA and EOMI. ENT: Nares clear, no rhinorrhea or epistaxis. Mucous membranes moist. NECK: Supple. CHEST: Clear to auscultation. No respiratory distress. HEART: Regular rate and rhythm. No murmur heard. Normal peripheral pulses. ABDOMEN: Soft, nontender, nondistended, normal active bowel sounds. EXTREMITIES: Normal range of motion. No edema. SKIN: Warm, dry, no rash. NEURO: No focal deficits. Alert and oriented x3. PSYCH: Normal mood and affect. Course Vital Signs Vital signs: Vital Signs Temperature 36.7 C 11/19/25 23:06 Pulse Rate 92 11/19/25 23:06 Respiratory Rate 16 11/19/25 23:06 Blood Pressure 155/108 H 11/19/25 23:06 Pulse Oximetry 98 11/19/25 23:06 Oxygen Delivery Room Air 11/19/25 23:06 Temperature 36.7 C 11/19/25 23:06 Pulse Rate 92 11/19/25 23:06 Respiratory Rate 16 11/19/25 23:06 Blood Pressure 155/108 H 11/19/25 23:06 Pulse Oximetry 98 11/19/25 23:06 Oxygen Delivery Room Air 11/19/25 23:06 MDM Differential Diagnosis Differential Diagnosis: Atypical chest pain ACS gastroesophageal reflux disease, pneumothorax, EKG showed no evidence of ST elevation or ST depression Initial troponin was 0.609 Patient's pain was improved with nitro and morphine The patient will be admitted for further care Lab Data 11/19/25 23:20 11/19/25 23:20 Labs: Lab Results 11/19/25 Range/Units 23:20 WBC 6.0 (4.5-10.0) K/mm3 RBC 5.41 (4.6-6.20) M/mm3 Hgb 15.6 (14.0-18.0) g/dL Hct 45.2 (42.0-52.0) % MCV 83.5 (80-100) fl MCH 28.8 (26-34) pg MCHC 34.5 (32-36) g/dl RDW 13.4 (11.5-14.5) % Plt Count 134 L (150-375) k/mm3 MPV 11.4 H (7.4-10.4) fl Immature Gran % (Auto) 0.0 (0-0.5) % Neut % (Auto) 56.3 (45.5-73.1) % Lymph % (Auto) 34.7 (18.3-44.2) % [place] % (Auto) 6.2 (2.6-8.5) % Eos % (Auto) 2.5 (0-4.4) % Baso % (Auto) 0.3 (0.2-1.2) % Lymph # (Auto) 2.07 (0.9-3.2) K/mm3 [place] # (Auto) 0.4 (0.1-0.6) K/mm3 Eos # (Auto) 0.2 (0-0.3) K/mm3 Baso # (Auto) 0.0 (0.0-0.1) K/mm3 Abs Immat Gran (auto) 0.00 (0.00-0.031) K/mm3 Absolute Neuts (auto) 3.4 (1.3-6.7) K/mm3 Absolute Nucleated RBC 0.000 (0.0-0.012) K/mm3 Nucleated RBC % 0.0 (0.0-0.2) % % Immature Plt Fraction 6.1 (0.9-11.2) % PT 12.1 (11.1-14.7) Seconds INR 0.9 APTT 28.2 (22.3-36.8) Seconds Sodium 137 (137-145) mmol/L Potassium 3.9 (3.4-5.0) mmol/L Chloride 105 (98-107) mmol/L Carbon Dioxide 24 (22-30) mmol/L Anion Gap 8 (4-12) mmol/L BUN 18 (9-20) mg/dL Creatinine 0.81 (0.7-1.3) mg/dL Estim Creat Clear Calc 90 ml/min Estimated GFR > 60 (59 - ) Glucose 128 H (65-110) mg/dL Calcium 8.7 (8.4-10.2) mg/dL Total Bilirubin 0.5 (0.2-1.3) mg/dL AST 40 (17-59) U/L ALT 27 (6-50) U/L Alkaline Phosphatase 147 H (38-126) U/L Troponin I 0.609 H* (0.000-0.034) ng/mL Total Protein 7.1 (6.3-8.2) g/dL Albumin 4.2 (3.5-5.1) g/dL Lipase 99 (23-300) U/L Discharge Plan Discharge Clinical Impression: Chest pain Patient Disposition: Still a Patient Condition: Stable Patient Language: Turkmen Prescriptions: No Action pantoprazole 40 mg tablet,delayed release (DR/EC) See Rx Instructions .ROUTE .COMPLEX Qty: 90 3RF Dose Instruction: TAKE 1 TABLET EVERY MORNING Rx Instructions: TAKE 1 TABLET EVERY MORNING ibuprofen 800 mg tablet 800 mg PO TID Qty: 60 1RF finasteride 5 mg tablet 5 mg PO HS Qty: 90 1RF Rx Instructions: Takes right after dinner doxepin 6 mg tablet See Rx Instructions .ROUTE .COMPLEX Qty: 30 2RF Dose Instruction: TAKE 1 TABLET BY MOUTH EVERY DAY AT BEDTIME NEEDED FOR SLEEP Rx Instructions: TAKE 1 TABLET BY MOUTH EVERY DAY AT BEDTIME NEEDED FOR SLEEP Follow-up/Referrals: Leonel Fall MD [Primary Care Provider, Family Practice] Time of Disposition: 00:35
[2025-11-20] MEDS: MORPHINE SULFATE (*CRX) 4 MG/ML INJ IV PUSH ×2 (00:23→05:37)
[2025-11-20] MEDS: ONDANSETRON INJ 4 MG/2 ML VIAL IV PUSH (00:23)
[2025-11-20] MEDS: NITROGLYCERIN SL 0.4 MG TABLET SUBLINGUAL (00:24)
[2025-11-20] MEDS: NITROGLYCERIN SL 0.4 MG TABLET (00:30)
[2025-11-20] MEDS: NITROGLYCERIN OINTMENT 1 INCH DOSE TRANSDERM ×2 (00:44→05:38)
--- NOTE | 2025-11-20 01:30 | WPCEDHO ---
ED Hand Off Checklist All vitals saved:yes IV Site documented:yes All med administrations documented:yes Triage Note Triage Note Pt states has been having chest 11/20/25 01:27 pain intermittently since Wednesday. States pain comes even while at rest. Also reports some SOB, mainly with inspiration . Allergies No Known Allergies Allergy (Verified 11/19/25 22:57) Family History (Last Reviewed 11/20/25 @ 00:18 by Teodoro Espinoza MD) Father Hypertension Family history of diabetes mellitus in first degree relative Administered/Completed Medications Discontinued Medications Aspirin (Aspirin 81 Mg Chewable Tablet) 324 mg PO ONCE STA Stop: 11/19/25 23:11 Last Admin: 11/20/25 00:12 Dose: 324 mg Documented By: SULEMA Morphine Sulfate (Morphine Sulfate (*Crx) 4 Mg/Ml Inj) 4 mg IV PUSH ONCE STA Stop: 11/20/25 00:14 Last Admin: 11/20/25 00:23 Dose: 4 mg Documented By: SULEMA Nitroglycerin (Nitroglycerin Sl 0.4 Mg Tablet) 0.4 mg SUBLINGUAL ONCE STA Stop: 11/20/25 00:14 Last Admin: 11/20/25 00:24 Dose: 0.4 mg Documented By: SULEMA Nitroglycerin (Nitroglycerin Sl 0.4 Mg Tablet) Confirm Administered Dose 0.4 mg .ROUTE .STK-MED ONE Stop: 11/20/25 00:32 Last Admin: 11/20/25 00:30 Dose: 0.4 mg Documented By: SULEMA Nitroglycerin (Nitroglycerin Ointment 1 Inch Dose) 1 inch TRANSDERM ONCE STA Stop: 11/20/25 00:39 Last Admin: 11/20/25 00:44 Dose: 1 inch Documented By: SULEMA Ondansetron HCl (Ondansetron Inj 4 Mg/2 Ml Vial) 4 mg IV PUSH ONCE STA Stop: 11/20/25 00:14 Last Admin: 11/20/25 00:23 Dose: 4 mg Documented By: SULEMA Interventions/Assessments IV / Saline Lock, Insert Start: 11/19/25 23:10 Freq: STAT Status: Active Protocol: Document 11/19/25 23:10 AMI (Rec: 11/19/25 23:24 AMI [id number]) IV Assessment Peripheral Access Left Antecubital IV Catheter Access Initiated IV Insertion Date 12/22/25 IV Insertion Time 23:23 Catheter Gauge 20 IV Insertion 1 Attempts Ultrasound Used for No Placement IV Site Assessment WNL IV Care and WNL Maintenance PA: Cardiovascular Assessment Start: 11/19/25 22:57 Freq: Status: Active Protocol: Document 11/20/25 01:27 LLG (Rec: 11/20/25 01:28 LLG [id number]) Cardiovascular Assessment Cardiovascular Chest Pain,Dyspnea Symptoms Skin Description Normal Color Heart Sounds Normal Jugular Vein None Distention Chest Pain Assessment Chest Pain Intensity 7 Chest Pain Location Midsternal PA: Respiratory Assessment Start: 11/19/25 22:57 Freq: Status: Active Protocol: Document 11/20/25 01:27 LLG (Rec: 11/20/25 01:28 LLG [id number]) Respiratory Assessment Respiratory WNL Except Parameters Symptoms Shortness of Breath With Exertion Pattern Regular Depth Normal Chest Expansion Symmetrical Cough Description None Sputum Amount None Oxygen Delivery Oxygen Delivery Room Air Pulse Oximetry (90- 98 100) Last Vital Signs Temperature 98.0 F 11/19/25 23:06 Pulse Rate 83 11/20/25 01:27 Respiratory Rate 14 11/20/25 01:27 Pulse Oximetry 98 11/20/25 01:27 Blood Pressure 118/104 H 11/20/25 01:27 Blood Pressure Mean 111 11/20/25 01:27 Blood Pressure Position Sitting 11/19/25 23:06 Oxygen Delivery Room Air 11/20/25 01:27 Weight 87.7 kg 11/20/25 01:27 Last Result - Abnormals Only Plt Count 134 k/mm3 (150-375) L 11/19/25 23:20 MPV 11.4 fl (7.4-10.4) H 11/19/25 23:20 Glucose 128 mg/dL (65-110) H 11/19/25 23:20 Alkaline Phosphatase 147 U/L (38-126) H 11/19/25 23:20 Troponin I 0.609 ng/mL (0.000-0.034) H* 11/19/25 23:20 Most Recent Suicide Severity Rating Suicide Severity Rating NO RISK INDICATED 11/20/25 01:27
--- NOTE | 2025-11-20 02:12 | ADMIMU ---
This patient, Saw Meyers, was admitted to IMU status, and placed in IMU Room 201-01 at 0142. Patient/family oriented to hospital policies and general routines including ID bracelet, bed and alarms, visiting hours, pain management, procedures, bathroom and other care routines, personal items, smoking policy, room service/diet, and visiting hours. Valuables list has been completed. Information on how to activate the Rapid Response Team has been discussed. Patient/Family are encouraged to report perceived risks to care and to ask questions if they do not understand what they are told or what they should do.
--- NOTE | 2025-11-20 02:20 | ECG_ITS ---
Test Date: 2025-11-20 03:01:55 Measurements Intervals [place] Rate: 73 P: 52 NC: 187 QRS: 8 QRSD: 96 T: 96 QT: 410 QTc: 452 Interpretive Statements SINUS RHYTHM DELAYED PRECORDIAL R/S TRANSITION BORDERLINE ST-T WAVE ABNORMALITY- ANTEROLAT/HIGH LAT LEADS BASELINE WANDER- V1 BORDERLINE ECG Compared to ECG 11/19/2025 23:12:45 NO SIGNIFICANT CHANGE Electronically Signed On 11-20-2025 07:10:49 JIGGER MACHINE OPERATOR by Denton Sadler D.O.
[2025-11-20 02:50] LABS: Troponin I 1.030 ng/mL (0.000-0.034)
[2025-11-20 04:04] LABS: Partial Thromboplastin Time 28.7 Seconds (22.3-36.8)
[2025-11-20] MEDS: HEPARIN SOD/D5W 100 UNITS/ML 25,000 UNITS/250 ML BAG 9 UNITS IV CONT (04:20)
--- NOTE | 2025-11-20 05:32 | PM.IMHP2 ---
H&P: HPI History of Present Illness Date/Time: 11/20/25 05:32 Chief Complaint: Chest pain Narrative: 60-year-old male with a past medical history of obesity, essential hypertension, untreated obstructive sleep apnea, GERD and BPH who presented to the ER in the company of his due to chest pain. The patient reported that he had a history of chest pain 4 years ago for which she had a stress echo that was negative (08/2021). He had not had any significant recurrence of pain since then. He does intermittently have some episodes of GERD but is GERD does not feel similar to the pain he has been having for the last few days. He has been compliant with his Protonix for his GERD and had tried adding [id number] Pepcid without relief in his symptoms. He reports that 4 days ago he began having substernal chest pain is pressure-like in nature and a 4 to 6/10 in intensity. The pain would occur initially with activity and would resolve when he would sit down to rest. However as the days have progressed he has had episodes of chest pain with lying down and has had increasing intensity of his chest pain. He took 1 baby aspirin a couple of days ago He finally decided come to the ER on the night of the due to his pain being and 9/10 in intensity and lasting for longer duration. In the ED received full-dose aspirin therapy and 1 dose of sublingual nitro with some improvement in his pain and a 2nd dose of nitro along with morphine with resolution of his pain. He then began having chest discomfort again and had 1 in of nitropaste applied. At the time my evaluation the patient states that he has still been having recurrent intermittent pain since arriving to the IMU with his pain ranging between 4 to 6/10 intensity. He denies any radiation of his pain, nausea, diaphoresis, palpitations, paroxysmal nocturnal dyspnea or lower extremity swelling. He reports that he used to have hypertension but is antihypertensives were discontinued a couple of years ago when he lost 50 lb through dietary efforts. He does have a history of obstructive sleep apnea and was compliant with his CPAP for the 1st couple of years and that he thought his CPAP was helping him initially but then felt like it was no longer helping him all that much and he was still having disrupted sleep so he quit using it. He does have BPH and has frequent sensation of incomplete bladder emptying. He is on finasteride and cannot take Flomax due to recurrent epistaxis. He denies any hematuria or dysuria. He denies any hematochezia or melena. He does have a history of chronic kidney disease that started when he was a child but currently has creatinine is normal. Review of Systems Review of Systems: 12 systems were reviewed with pertinent positives and negatives per HPI. Except as documented in the HPI, all other systems were reviewed and are negative. [facility] Past Medical History Medical History (Updated 11/20/25 @ 06:29 by Nicci Turcios DO) CONSTANCE (obstructive sleep apnea) No longer using CPAP Left inguinal hernia Hyperlipidemia Most recent lipid panel 02/2025 triglycerides 63 total cholesterol 190 LDL 118 VLDL 12 HDL 60 also lipoprotein 83 Peripheral neuropathy Hypertension Hx of kidney disease With normal creatinine and GFR at this time Perforation of sigmoid colon due to diverticulitis Fatty liver disease, nonalcoholic Benign prostatic hyperplasia Chronic GERD Surgical History Surgical History (Updated 11/20/25 @ 06:07 by Nicci Turcios DO) History of nasal septoplasty History of tonsillectomy and adenoidectomy Family History Family History (Updated 11/20/25 @ 06:10 by Nicci Turcios DO) Father , At age 62 Hypertension Diabetes mellitus Cerebral aneurysm, Onset Age: 62 Sibling Diabetes mellitus CHF (congestive heart failure) Mother , Age 76 Heart disease Social History Social History (Updated 11/20/25 @ 06:15 by Nicci Turcios DO) Social History: The patient lives with his they have been since 1996. They have no children. The patient is lifelong nonsmoker in only rarely drinks alcohol in moderation. He denies any illicit substance use. 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 He reports that he walks 7000 steps a day as part of his job. Code status: Full code Surrogate decision maker: Smoking status: Never smoker Second hand tobacco smoke exposure: Yes Alcohol intake: former Alcohol use details: rarely Substance use: never Lack of Transportation: No Lack of Food: Never True Current Housing: I Have Housing Concerned About Future Housing: No Difficulty Paying Gas/Electric Bills: No Difficulty Paying for Meds: No Currently Unemployed: No Education: Associate Degree Difficulty w/ Childcare or Family Care: No Living arrangements: with family Spiritual care concerns: No Meds Home Medications and Allergies Home Medications ?Medication ?Instructions ?Recorded ?Confirmed ?Type pantoprazole 40 mg tablet,delayed See Rx Instructions .Route 03/05/25 11/20/25 Rx release .COMPLEX #90 tabs finasteride 5 mg tablet 5 mg PO HS #90 tabs 09/26/25 11/20/25 Rx doxepin 6 mg tablet See Rx Instructions .Route 10/31/25 11/20/25 Rx .COMPLEX #30 tabs ibuprofen 800 mg tablet 800 mg PO PRN pain 11/20/25 11/20/25 History Allergies Allergy/AdvReac Type Severity Reaction Status Date / Time No Known Allergies Allergy Verified 11/20/25 01:59 Vital Signs Vital Signs - 24 hr 11/19/25 23:06 11/20/25 00:16 11/20/25 00:17 Temperature 98.0 F Pulse Rate 92 91 90 Respiratory Rate 16 24 H 19 Blood Pressure 155/108 H 161/113 H Pulse Oximetry 98 94 99 Oxygen Delivery Room Air 11/20/25 00:28 11/20/25 00:30 11/20/25 00:32 Temperature Pulse Rate 99 93 89 Respiratory Rate 11 L 19 20 Blood Pressure 153/117 H 153/105 H Pulse Oximetry 96 97 97 Oxygen Delivery 11/20/25 00:37 11/20/25 00:42 11/20/25 00:45 Temperature Pulse Rate 96 92 91 Respiratory Rate 15 12 19 Blood Pressure 140/115 H 142/100 H Pulse Oximetry 95 96 95 Oxygen Delivery 11/20/25 00:47 11/20/25 00:52 11/20/25 00:57 Temperature Pulse Rate 86 88 86 Respiratory Rate 13 16 13 Blood Pressure 137/102 H 134/102 H 122/92 H Pulse Oximetry 97 96 95 Oxygen Delivery 11/20/25 01:00 11/20/25 01:02 11/20/25 01:07 Temperature Pulse Rate 76 87 87 Respiratory Rate 14 13 12 Blood Pressure 135/100 H 134/108 H Pulse Oximetry 97 98 97 Oxygen Delivery 11/20/25 01:12 11/20/25 01:15 11/20/25 01:17 Temperature Pulse Rate 82 80 84 Respiratory Rate 15 19 19 Blood Pressure 135/89 114/96 H Pulse Oximetry 97 97 96 Oxygen Delivery 11/20/25 01:22 11/20/25 01:27 11/20/25 01:27 Temperature Pulse Rate 76 83 Respiratory Rate 20 14 Blood Pressure 130/96 H 118/104 H Pulse Oximetry 97 98 98 Oxygen Delivery Room Air 11/20/25 01:45 11/20/25 02:00 11/20/25 04:00 Temperature 97.5 F L 97.4 F L Pulse Rate 77 76 76 Respiratory Rate 18 14 Blood Pressure 143/93 H 125/95 H Pulse Oximetry 100 100 Oxygen Delivery 11/20/25 04:00 Temperature Pulse Rate 72 Respiratory Rate Blood Pressure Pulse Oximetry Oxygen Delivery Exam Narrative: Weight 84.3 kg BMI 30 Const: Other: Obese, no acute distress, appears stated age HENMT: Other: Mucous membranes are moist, no oral pharyngeal erythema, crowded posterior oropharynx Eyes: Other: Pupils are equal and reactive, no scleral icterus, no conjunctival pallor Neck: Other: Large neck circumference, no thyromegaly, no JVD Resp: Other: Clear to auscultation bilaterally, no increased work of breathing Cardio: Other: Regular rate, regular rhythm, 2+ bilateral radial pedal pulses GI: Other: Soft, nontender, nondistended, positive bowel sounds Skin: Other: No jaundice, no pallor Neuro: Other: No localizing neurologic deficits noted during the course of conversation, alert and oriented Extrem: Other: No clubbing, cyanosis or edema Psych: Other: Appropriate mood and affect, pleasant and cooperative, judgment and insight intact Results Labs Labs: Laboratory Tests 11/19/25 23:20 11/19/25 23:20 11/19/25 11/20/25 11/20/25 23:20 02:19 03:48 WBC 6.0 RBC 5.41 Hgb 15.6 Hct 45.2 MCV 83.5 MCH 28.8 MCHC 34.5 RDW 13.4 Plt Count 134 L MPV 11.4 H Immature Gran % (Auto) 0.0 Neut % (Auto) 56.3 Lymph % (Auto) 34.7 [place] % (Auto) 6.2 Eos % (Auto) 2.5 Baso % (Auto) 0.3 Lymph # (Auto) 2.07 [place] # (Auto) 0.4 Eos # (Auto) 0.2 Baso # (Auto) 0.0 Abs Immat Gran (auto) 0.00 Absolute Neuts (auto) 3.4 Absolute Nucleated RBC 0.000 Nucleated RBC % 0.0 % Immature Plt Fraction 6.1 PT 12.1 INR 0.9 APTT 28.2 28.7 Sodium 137 Potassium 3.9 Chloride 105 Carbon Dioxide 24 Anion Gap 8 BUN 18 Creatinine 0.81 Estim Creat Clear Calc 90 Estimated GFR > 60 Glucose 128 H Calcium 8.7 Total Bilirubin 0.5 AST 40 ALT 27 Alkaline Phosphatase 147 H Troponin I 0.609 H* 1.030 H* D Total Protein 7.1 Albumin 4.2 Lipase 99 11/20/25 05:40 WBC RBC Hgb Hct MCV MCH MCHC RDW Plt Count MPV Immature Gran % (Auto) Neut % (Auto) Lymph % (Auto) [place] % (Auto) Eos % (Auto) Baso % (Auto) Lymph # (Auto) [place] # (Auto) Eos # (Auto) Baso # (Auto) Abs Immat Gran (auto) Absolute Neuts (auto) Absolute Nucleated RBC Nucleated RBC % % Immature Plt Fraction PT INR APTT Sodium Potassium Chloride Carbon Dioxide Anion Gap BUN Creatinine Estim Creat Clear Calc Estimated GFR Glucose Calcium Total Bilirubin AST ALT Alkaline Phosphatase Troponin I 1.400 H* D Total Protein Albumin Lipase Chest x-ray: Personally reviewed and interpreted no acute cardiopulmonary process. Radiologic interpretation pending. EKG: Personally reviewed and interpreted cardiology interpretation pending. Sinus rhythm rate 98, left axis deviation, anterior septal VA indeterminate age nonspecific ST T-wave changes in V1 to 3 Quality VTE Prophylaxis VTE prophylaxis: pharmacologic ordered (Heparin drip per protocol.) Assessment and Plan Assessment and plan (1) Non-STEMI (non-ST elevated myocardial infarction): Code(s): I21.4 - Non-ST elevation (NSTEMI) myocardial infarction Status: Acute (2) Hyperlipidemia: Qualifiers: Hyperlipidemia type: pure hypercholesterolemia Qualified Code(s): E78.00 - Pure hypercholesterolemia, unspecified Code(s): E78.5 - Hyperlipidemia, unspecified Status: Acute (3) Hypertension: Qualifiers: Hypertension type: primary hypertension Qualified Code(s): I10 - Essential (primary) hypertension Code(s): I10 - Essential (primary) hypertension Status: Acute (4) Chronic GERD: Code(s): K21.9 - Gastro-esophageal reflux disease without esophagitis Status: Acute (5) Benign prostatic hyperplasia: Qualifiers: Lower urinary tract symptom presence: symptoms absent Qualified Code(s): N40.0 - Benign prostatic hyperplasia without lower urinary tract symptoms Code(s): N40.0 - Benign prostatic hyperplasia without lower urinary tract symptoms Status: Acute (6) CONSTANCE (obstructive sleep apnea): Code(s): G47.33 - Obstructive sleep apnea (adult) (pediatric) Status: Acute Plan Patient presented with chest pain troponin elevation consistent with non STEMI. Patient is still having intermittent pain despite nitropaste, aspirin and morphine 2 mg. Will increase morphine to 4 mg q.1 hour p.r.n.. Cardiology consult pending. Patient is NPO. Will continue to trend troponin to peak. Repeat EKG reviewed and unchanged from initial. Will initiate 81 mg aspirin daily. Will initiate heparin drip and titrate per protocol. Patient was hypertensive on arrival to the hospital blood pressures improved after nitropaste. The patient does have distant history of essential hypertension that required antihypertensive medications. Is unclear if his blood pressure this time is elevated due to essential hypertension verses response to pain. Patient has a history of elevated total cholesterol and elevated LDL on lipid panel in August of 2025. Will start the patient on high-intensity statin. Will continue home PPI. The importance of compliance with CPAP therapy was discussed with the patient. Untreated obstructive sleep apnea can lead to increased cardiac strain and increased risk of VA and sudden cardiac . Patient verbalized understanding and is willing to try wearing his home CPAP again. Time Spent with Patient Time with patient: 75 minutes or greater Hospitalist MIPS Advance Care Plan I have confirmed that the patient's Advanced Care Plan is present, code status is documented, or surrogate decision maker is listed in patient medical record.: Yes Medication Reconciliation I have utilized all available resources to obtain, update and review the patients current medications (includes all prescriptions, OTC, herbals, cannabis, and nutritional supplements).: Yes
[2025-11-20 06:21] LABS: Troponin I 1.400 ng/mL (0.000-0.034)
[2025-11-20] MEDS: METOPROLOL SUCCINATE EXT REL 25 MG TABCR PO (09:04)
[2025-11-20] MEDS: ASPIRIN 81 MG CHEWABLE TABLET PO (09:04)
[2025-11-20] MEDS: ATORVASTATIN 40 MG TABLET 80 MG PO (09:04)
[2025-11-20] MEDS: PANTOPRAZOLE 40 MG TABLET PO (09:04)
--- NOTE | 2025-11-20 09:38 | PM.CNCAR ---
Assessment and Plan Assessment and plan (1) Non-STEMI (non-ST elevated myocardial infarction): Code(s): I21.4 - Non-ST elevation (NSTEMI) myocardial infarction Status: Acute (2) Hyperlipidemia: Qualifiers: Hyperlipidemia type: pure hypercholesterolemia Qualified Code(s): E78.00 - Pure hypercholesterolemia, unspecified Code(s): E78.5 - Hyperlipidemia, unspecified Status: Acute (3) CONSTANCE (obstructive sleep apnea): Code(s): G47.33 - Obstructive sleep apnea (adult) (pediatric) Status: Acute Plan 60-year-old man with CONSTANCE on CPAP presents with chest discomfort NSTEMI -on heparin drip, aspirin 81 mg p.o. daily, and atorvastatin mg evening -will add Toprol 25 mg p.o. daily -we discussed the benefits, risks alternatives of left heart catheterization possible PCI and after patient expressed understanding and all questions answered, decision was made to proceed forward -obtain transthoracic echocardiogram -likely has some component of pericarditis as well -may benefit from colchicine if symptoms do not improve Hyperlipidemia -atorvastatin 80 mg every evening Obstructive sleep apnea -continue CPAP History of Present Illness History of Present Illness Consult date/time: 11/20/25 09:38 Requesting physician: Nicci Turcios DO Consult reason: chest pain Reason For Visit: Chest pain elevated troponin Narrative: 60-year-old man with CONSTANCE on CPAP presents with chest discomfort. Chest pressure started Wednesday evening and was intermittent in at that time. Typically provoked by physical activity such as ambulating up 1 flight of stairs and resolves with rest and time. He noted that in the last 2 days, the chest pressure started to occur at rest. Yesterday evening, the chest pressure severity worsen and no longer resolves with time. He also started to notice that when he lay supine, the chest discomfort will worsen and will improve very slightly when he sits upright and leaning forward. When he took deep breaths, the chest discomfort or also worsened. Has some associated shortness of breath. Denies any syncopal events. Review of Systems Cardiovascular: Cardiovascular: Reports as per HPI Respiratory: Respiratory: Reports as per HPI [facility] Past Medical History Medical History (Updated 11/20/25 @ 06:29 by Nicci Turcios DO) CONSTANCE (obstructive sleep apnea) No longer using CPAP Left inguinal hernia Hyperlipidemia Most recent lipid panel 10 02/2025 triglycerides 63 total cholesterol 190 LDL 118 VLDL 12 HDL 60 also lipoprotein 83 Peripheral neuropathy Hypertension Hx of kidney disease With normal creatinine and GFR at this time Perforation of sigmoid colon due to diverticulitis Fatty liver disease, nonalcoholic Benign prostatic hyperplasia Chronic GERD Surgical History Surgical History (Updated 11/20/25 @ 06:07 by Nicci Turcios DO) History of nasal septoplasty History of tonsillectomy and adenoidectomy Family History Family History (Updated 11/20/25 @ 06:10 by Nicci Turcios DO) Father , At age 62 Hypertension Diabetes mellitus Cerebral aneurysm, Onset Age: 62 Sibling Diabetes mellitus CHF (congestive heart failure) Mother , Age 76 Heart disease Social History Social History (Updated 11/20/25 @ 06:15 by Nicci Turcios DO) Social History: The patient lives with his they have been since 1996. They have no children. The patient is lifelong nonsmoker in only rarely drinks alcohol in moderation. He denies any illicit substance use. 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 He reports that he walks 7000 steps a day as part of his job. Code status: Full code Surrogate decision maker: Smoking status: Never smoker Second hand tobacco smoke exposure: Yes Alcohol intake: former Alcohol use details: rarely Substance use: never Lack of Transportation: No Lack of Food: Never True Current Housing: I Have Housing Concerned About Future Housing: No Difficulty Paying Gas/Electric Bills: No Difficulty Paying for Meds: No Currently Unemployed: No Education: Associate Degree Difficulty w/ Childcare or Family Care: No Living arrangements: with family Spiritual care concerns: No Meds Home Medications and Allergies Home Medications ?Medication ?Instructions ?Recorded ?Confirmed ?Type pantoprazole 40 mg tablet,delayed See Rx Instructions .Route 03/05/25 11/20/25 Rx release .COMPLEX #90 tabs finasteride 5 mg tablet 5 mg PO HS #90 tabs 09/26/25 11/20/25 Rx doxepin 6 mg tablet See Rx Instructions .Route 10/31/25 11/20/25 Rx .COMPLEX #30 tabs ibuprofen 800 mg tablet 800 mg PO PRN pain 11/20/25 11/20/25 History Allergies Allergy/AdvReac Type Severity Reaction Status Date / Time No Known Allergies Allergy Verified 11/20/25 01:59 Vital Signs Vital Signs - 24 hr 11/19/25 23:06 11/20/25 00:16 11/20/25 00:17 Temperature 36.7 C Pulse Rate 92 91 90 Respiratory Rate 16 24 H 19 Blood Pressure 155/108 H 161/113 H Pulse Oximetry 98 94 99 Oxygen Delivery Room Air 11/20/25 00:28 11/20/25 00:30 11/20/25 00:32 Temperature Pulse Rate 99 93 89 Respiratory Rate 11 L 19 20 Blood Pressure 153/117 H 153/105 H Pulse Oximetry 96 97 97 Oxygen Delivery 11/20/25 00:37 11/20/25 00:42 11/20/25 00:45 Temperature Pulse Rate 96 92 91 Respiratory Rate 15 12 19 Blood Pressure 140/115 H 142/100 H Pulse Oximetry 95 96 95 Oxygen Delivery 11/20/25 00:47 11/20/25 00:52 11/20/25 00:57 Temperature Pulse Rate 86 88 86 Respiratory Rate 13 16 13 Blood Pressure 137/102 H 134/102 H 122/92 H Pulse Oximetry 97 96 95 Oxygen Delivery 11/20/25 01:00 11/20/25 01:02 11/20/25 01:07 Temperature Pulse Rate 76 87 87 Respiratory Rate 14 13 12 Blood Pressure 135/100 H 134/108 H Pulse Oximetry 97 98 97 Oxygen Delivery 11/20/25 01:12 11/20/25 01:15 11/20/25 01:17 Temperature Pulse Rate 82 80 84 Respiratory Rate 15 19 19 Blood Pressure 135/89 114/96 H Pulse Oximetry 97 97 96 Oxygen Delivery 11/20/25 01:22 11/20/25 01:27 11/20/25 01:27 Temperature Pulse Rate 76 83 Respiratory Rate 20 14 Blood Pressure 130/96 H 118/104 H Pulse Oximetry 97 98 98 Oxygen Delivery Room Air 11/20/25 01:45 11/20/25 02:00 11/20/25 04:00 Temperature 36.4 C L 36.3 C L Pulse Rate 77 76 76 Respiratory Rate 18 14 Blood Pressure 143/93 H 125/95 H Pulse Oximetry 100 100 Oxygen Delivery 11/20/25 04:00 11/20/25 06:00 11/20/25 07:30 Temperature 36.4 C L Pulse Rate 72 76 77 Respiratory Rate 20 Blood Pressure 127/90 Pulse Oximetry 97 Oxygen Delivery 11/20/25 09:04 Temperature Pulse Rate 88 Respiratory Rate Blood Pressure Pulse Oximetry Oxygen Delivery Exam Const: General: comfortable HENMT: Mouth: Yes moist mucous membranes Eyes: EOM: EOMs intact bilaterally Neck: Neck: no JVD Resp: Effort & Inspection: normal respiratory effort Auscultation: clear to auscultation bilaterally Cardio: Rate: regular rate Rhythm: regular rhythm Other: Faint heart sounds Extrem: General: no pedal edema Results Labs and Meds 11/19/25 23:20 11/19/25 23:20 Lab results: Cardiac Enzymes 11/19/25 11/20/25 11/20/25 Range/Units 23:20 02:19 05:40 AST 40 (17-59) U/L Troponin I 0.609 H* 1.030 H* D 1.400 H* D (0.000-0.034) ng/mL Coagulation 11/19/25 11/20/25 Range/Units 23:20 03:48 PT 12.1 (11.1-14.7) Seconds APTT 28.2 28.7 (22.3-36.8) Seconds CBC 11/19/25 Range/Units 23:20 WBC 6.0 (4.5-10.0) K/mm3 RBC 5.41 (4.6-6.20) M/mm3 Hgb 15.6 (14.0-18.0) g/dL Hct 45.2 (42.0-52.0) % Plt Count 134 L (150-375) k/mm3 Lymph # (Auto) 2.07 (0.9-3.2) K/mm3 [place] # (Auto) 0.4 (0.1-0.6) K/mm3 Eos # (Auto) 0.2 (0-0.3) K/mm3 Baso # (Auto) 0.0 (0.0-0.1) K/mm3 Comprehensive Metabolic Panel 11/19/25 Range/Units 23:20 Sodium 137 (137-145) mmol/L Potassium 3.9 (3.4-5.0) mmol/L Chloride 105 (98-107) mmol/L Carbon Dioxide 24 (22-30) mmol/L BUN 18 (9-20) mg/dL Creatinine 0.81 (0.7-1.3) mg/dL Glucose 128 H (65-110) mg/dL Calcium 8.7 (8.4-10.2) mg/dL AST 40 (17-59) U/L ALT 27 (6-50) U/L Alkaline Phosphatase 147 H (38-126) U/L Total Protein 7.1 (6.3-8.2) g/dL Albumin 4.2 (3.5-5.1) g/dL Intake and Output 11/19/25 11/20/25 11/20/25 23:59 07:59 15:59 Other: # Unmeasured Voids 1 Patient Weight 11/20/25 23:59 Weight 84.3 kg
--- NOTE | 2025-11-20 09:44 | WPDHPUPDATE1 ---
History and Physical Update Update Date/Time: 11/20/25 09:44 History and Physical has been reviewed, including an updated exam of the patient. There are NO changes in the patient's condition. Risks, benefits, and alternatives have been discussed and questions answered. Patient agrees to proceed with procedure.
--- NOTE | 2025-11-20 09:44 | WPDMODSED ---
Moderate Sedation Note-Pt Data Patient Data Allergies Allergy/AdvReac Type Severity Reaction Status Date / Time No Known Allergies Allergy Verified 11/20/25 01:59 Home Medications ?Medication ?Instructions ?Recorded ?Confirmed ?Type pantoprazole 40 mg tablet,delayed See Rx Instructions .Route 03/05/25 11/20/25 Rx release .COMPLEX #90 tabs finasteride 5 mg tablet 5 mg PO HS #90 tabs 09/26/25 11/20/25 Rx doxepin 6 mg tablet See Rx Instructions .Route 10/31/25 11/20/25 Rx .COMPLEX #30 tabs ibuprofen 800 mg tablet 800 mg PO PRN pain 11/20/25 11/20/25 History Current Medications: Active Medications Aspirin (Aspirin 81 Mg Chewable Tablet) 81 mg PO DAILY@0800 [facility] Last Admin: 11/20/25 09:04 Dose: 81 mg Atorvastatin Calcium (Atorvastatin 40 Mg Tablet) 80 mg PO DAILY [facility] Last Admin: 11/20/25 09:04 Dose: 80 mg Finasteride (Finasteride 5 Mg Tablet) 5 mg PO [facility] Heparin Sodium (Porcine) (Heparin Sodium 5,000 Units/Ml Vial) 4,000 units IV PUSH PRN PRN PRN Reason: aPTT less than 55 seconds Heparin Sodium (Porcine) (Heparin Sodium 5,000 Units/Ml Vial) 3,000 units IV PUSH PRN PRN PRN Reason: aPTT 55 - 70 seconds Heparin Sodium/Dextrose (Heparin Sodium/D5w 100 Units/Ml) 25,000 units in 250 mls @ 9 mls/hr IV CONT .Q24H [facility]; Protocol Last Admin: 11/20/25 04:20 Dose: 900 units/hr, 9 mls/hr Melatonin (Melatonin 5 Mg Tablet) 10 mg PO [facility] Metoprolol Succinate (Metoprolol Succinate Ext Rel 25 Mg Tabcr) 25 mg PO QAM [facility] Last Admin: 11/20/25 09:04 Dose: 25 mg Morphine Sulfate (Morphine Sulfate (*Crx) 4 Mg/Ml Inj) 4 mg IV PUSH Q1H PRN PRN Reason: Chest Pain Last Admin: 11/20/25 05:37 Dose: 4 mg Nitroglycerin (Nitroglycerin Ointment 1 Inch Dose) 1 inch TRANSDERM Q6HR [facility] Last Admin: 11/20/25 05:38 Dose: 1 inch Ondansetron HCl (Ondansetron Inj 4 Mg/2 Ml Vial) 4 mg IV PUSH Q4H PRN PRN Reason: Nausea Pantoprazole Sodium (Pantoprazole 40 Mg Tablet) 40 mg PO DAILY [facility] Last Admin: 11/20/25 09:04 Dose: 40 mg Perflutren Lipid Microsphere (Perflutren Lipid Microspheres 1.5 Ml Vial Diluted To 10 Ml Total Volume) 0 ml IV PUSH ONCE PRN; Protocol PRN Reason: adequate visualization Stop: 11/23/25 09:43 Sedation/Anesthesia: No previous sedation/anesthesia problems (including family history). [facility] Past Medical History Medical History (Updated 11/20/25 @ 06:29 by Nicci Turcios DO) CONSTANCE (obstructive sleep apnea) No longer using CPAP Left inguinal hernia Hyperlipidemia Most recent lipid panel 02/2025 triglycerides 63 total cholesterol 190 LDL 118 VLDL 12 HDL 60 also lipoprotein 83 Peripheral neuropathy Hypertension Hx of kidney disease With normal creatinine and GFR at this time Perforation of sigmoid colon due to diverticulitis Fatty liver disease, nonalcoholic Benign prostatic hyperplasia Chronic GERD Surgical History Surgical History (Updated 11/20/25 @ 06:07 by Nicci Turcios DO) History of nasal septoplasty History of tonsillectomy and adenoidectomy Family History Family History (Updated 11/20/25 @ 06:10 by Nicci Turcios DO) Father , At age 62 Hypertension Diabetes mellitus Cerebral aneurysm, Onset Age: 62 Sibling Diabetes mellitus CHF (congestive heart failure) Mother , Age 76 Heart disease Social History Social History (Updated 11/20/25 @ 06:15 by Nicci Turcios DO) Social History: The patient lives with his they have been since 1996. They have no children. The patient is lifelong nonsmoker in only rarely drinks alcohol in moderation. He denies any illicit substance use. 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 He reports that he walks 7000 steps a day as part of his job. Code status: Full code Surrogate decision maker: Smoking status: Never smoker Second hand tobacco smoke exposure: Yes Alcohol intake: former Alcohol use details: rarely Substance use: never Lack of Transportation: No Lack of Food: Never True Current Housing: I Have Housing Concerned About Future Housing: No Difficulty Paying Gas/Electric Bills: No Difficulty Paying for Meds: No Currently Unemployed: No Education: Associate Degree Difficulty w/ Childcare or Family Care: No Living arrangements: with family Spiritual care concerns: No Mod Sed Physical Exam Physical Exam Pre Procedural Exam: Normal: Lungs, Heart Size, Heart Rate and Heart Rhythm Hours since solid foods: 12 Hours since liquid intake: 12 Mallampati Classification: class II Internal Medicine - PN: Obj Da Vital Signs Vital Signs: Vital Signs - 24 hr 11/19/25 23:06 11/20/25 00:16 11/20/25 00:17 Temperature 36.7 C Pulse Rate 92 91 90 Respiratory Rate 16 24 H 19 Blood Pressure 155/108 H 161/113 H Pulse Oximetry 98 94 99 Oxygen Delivery Room Air 11/20/25 00:28 11/20/25 00:30 11/20/25 00:32 Temperature Pulse Rate 99 93 89 Respiratory Rate 11 L 19 20 Blood Pressure 153/117 H 153/105 H Pulse Oximetry 96 97 97 Oxygen Delivery 11/20/25 00:37 11/20/25 00:42 11/20/25 00:45 Temperature Pulse Rate 96 92 91 Respiratory Rate 15 12 19 Blood Pressure 140/115 H 142/100 H Pulse Oximetry 95 96 95 Oxygen Delivery 11/20/25 00:47 11/20/25 00:52 11/20/25 00:57 Temperature Pulse Rate 86 88 86 Respiratory Rate 13 16 13 Blood Pressure 137/102 H 134/102 H 122/92 H Pulse Oximetry 97 96 95 Oxygen Delivery 11/20/25 01:00 11/20/25 01:02 11/20/25 01:07 Temperature Pulse Rate 76 87 87 Respiratory Rate 14 13 12 Blood Pressure 135/100 H 134/108 H Pulse Oximetry 97 98 97 Oxygen Delivery 11/20/25 01:12 11/20/25 01:15 11/20/25 01:17 Temperature Pulse Rate 82 80 84 Respiratory Rate 15 19 19 Blood Pressure 135/89 114/96 H Pulse Oximetry 97 97 96 Oxygen Delivery 11/20/25 01:22 11/20/25 01:27 11/20/25 01:27 Temperature Pulse Rate 76 83 Respiratory Rate 20 14 Blood Pressure 130/96 H 118/104 H Pulse Oximetry 97 98 98 Oxygen Delivery Room Air 11/20/25 01:45 11/20/25 02:00 11/20/25 04:00 Temperature 36.4 C L 36.3 C L Pulse Rate 77 76 76 Respiratory Rate 18 14 Blood Pressure 143/93 H 125/95 H Pulse Oximetry 100 100 Oxygen Delivery 11/20/25 04:00 11/20/25 06:00 11/20/25 07:30 Temperature 36.4 C L Pulse Rate 72 76 77 Respiratory Rate 20 Blood Pressure 127/90 Pulse Oximetry 97 Oxygen Delivery 11/20/25 09:04 Temperature Pulse Rate 88 Respiratory Rate Blood Pressure Pulse Oximetry Oxygen Delivery Meds/Results Medications: Active Medications Generic Name Dose Route Start Last Admin Trade Name Freq PRN Reason Stop Dose Admin Aspirin 81 mg 11/20/25 08:00 11/20/25 09:04 Aspirin 81 Mg Chewable Tablet PO 81 mg DAILY@0800 [facility] Administration Atorvastatin Calcium 80 mg 11/20/25 09:00 11/20/25 09:04 Atorvastatin 40 Mg Tablet PO 80 mg DAILY [facility] Administration Finasteride 5 mg 11/20/25 21:00 Finasteride 5 Mg Tablet PO HS [facility] Heparin Sodium (Porcine) 4,000 units 11/20/25 03:32 Heparin Sodium 5,000 Units/Ml Vial IV PUSH PRN PRN aPTT less than 55 seconds Heparin Sodium (Porcine) 3,000 units 11/20/25 03:32 Heparin Sodium 5,000 Units/Ml Vial IV PUSH PRN PRN aPTT 55 - 70 seconds Heparin Sodium/Dextrose 25,000 units in 250 mls @ 9 mls/hr 11/20/25 03:35 11/20/25 04:20 Heparin Sodium/D5w 100 Units/Ml IV CONT 900 units/hr .Q24H [facility] 9 mls/hr Protocol Administration 900 UNITS/HR Melatonin 10 mg 11/20/25 21:00 Melatonin 5 Mg Tablet PO HS [facility] Metoprolol Succinate 25 mg 11/20/25 09:00 11/20/25 09:04 Metoprolol Succinate Ext Rel 25 Mg Tabcr PO 25 mg QAM [facility] Administration Morphine Sulfate 4 mg 11/20/25 05:15 11/20/25 05:37 Morphine Sulfate (*Crx) 4 Mg/Ml Inj IV PUSH 4 mg Q1H PRN Administration Chest Pain Nitroglycerin 1 inch 11/20/25 06:00 11/20/25 05:38 Nitroglycerin Ointment 1 Inch Dose TRANSDERM 1 inch Q6HR [facility] Administration Ondansetron HCl 4 mg 11/20/25 01:08 Ondansetron Inj 4 Mg/2 Ml Vial IV PUSH Q4H PRN Nausea Pantoprazole Sodium 40 mg 11/20/25 09:00 11/20/25 09:04 Pantoprazole 40 Mg Tablet PO 40 mg DAILY [facility]IO Administration Perflutren Lipid Microsphere 0 ml 11/20/25 09:43 Perflutren Lipid Microspheres 1.5 Ml Vial Diluted To 10 Ml Total Volume IV PUSH 11/23/25 09:43 ONCE PRN adequate visualization Protocol Radiology Results: ITS Impressions Chest X-Ray 11/20/25 06:22 IMPRESSION: 1. No acute cardiopulmonary findings. Labs 11/19/25 23:20 11/19/25 23:20 Labs: Laboratory Results - last 24 hr 11/19/25 11/20/25 11/20/25 23:20 02:19 03:48 WBC 6.0 RBC 5.41 Hgb 15.6 Hct 45.2 MCV 83.5 MCH 28.8 MCHC 34.5 RDW 13.4 Plt Count 134 L MPV 11.4 H Immature Gran % (Auto) 0.0 Neut % (Auto) 56.3 Lymph % (Auto) 34.7 Marshall % (Auto) 6.2 Eos % (Auto) 2.5 Baso % (Auto) 0.3 Lymph # (Auto) 2.07 Marshall # (Auto) 0.4 Eos # (Auto) 0.2 Baso # (Auto) 0.0 Abs Immat Gran (auto) 0.00 Absolute Neuts (auto) 3.4 Absolute Nucleated RBC 0.000 Nucleated RBC % 0.0 % Immature Plt Fraction 6.1 PT 12.1 INR 0.9 APTT 28.2 28.7 Sodium 137 Potassium 3.9 Chloride 105 Carbon Dioxide 24 Anion Gap 8 BUN 18 Creatinine 0.81 Estim Creat Clear Calc 90 Estimated GFR > 60 Glucose 128 H Calcium 8.7 Total Bilirubin 0.5 AST 40 ALT 27 Alkaline Phosphatase 147 H Troponin I 0.609 H* 1.030 H* D Total Protein 7.1 Albumin 4.2 Lipase 99 11/20/25 05:40 WBC RBC Hgb Hct MCV MCH MCHC RDW Plt Count MPV Immature Gran % (Auto) Neut % (Auto) Lymph % (Auto) Marshall % (Auto) Eos % (Auto) Baso % (Auto) Lymph # (Auto) Marshall # (Auto) Eos # (Auto) Baso # (Auto) Abs Immat Gran (auto) Absolute Neuts (auto) Absolute Nucleated RBC Nucleated RBC % % Immature Plt Fraction PT INR APTT Sodium Potassium Chloride Carbon Dioxide Anion Gap BUN Creatinine Estim Creat Clear Calc Estimated GFR Glucose Calcium Total Bilirubin AST ALT Alkaline Phosphatase Troponin I 1.400 H* D Total Protein Albumin Lipase ASA Classification/Sedation ASA Classification/Sedation ASA Class: III Emergent: No Risks: Risks, benefits and alternatives explained and patient/family accepted plan for sedation. Patient re-evaluated immediately prior to sedation.
[2025-11-20 09:53] LABS: Partial Thromboplastin Time 49.6 Seconds (22.3-36.8)
--- NOTE | 2025-11-20 11:14 | P.PCNCC_ITS ---
Cardiac Cath Procedure Note Date of procedure:: 11/20/25 Performing physician:: CATHETERIZATION LABORATORY REPORT Procedure Date: 11/20/2025 Referring Physician: Dr. Turcios Anesthesia: Versed and Fentanyl were ordered and given in my presence at 1018, procedure ended at 1101. Supervision of nurse, Fiona Coello monitored moderate sedation with 2mg Versed and 150mcg Fentanyl was provided for 43 minutes. Pre-op Diagnosis: NSTEMI Post-op Diagnosis: NSTEMI Procedure(s): Left heart catheterization with coronary angiography Access Site: Right radial artery Brief History and Clinical Indications: All risks, benefits and alternatives to left heart catheterization with or without percutaneous coronary intervention was discussed at length with the patient. Risk of complications including but not limited to bleeding, infection, arrhythmia, stroke, worsening kidney function, blood loss, groin hematoma, limb loss, emergency coronary artery bypass grafting, and even were discussed with the patient and all questions were answered. The patient understood and wished to proceed. Time out called, patient name, date of , medical record number, allergies, procedure performed, identify Chief Of Safety And Protection, patient and staff member concurred with accurate data, procedure carried on. Findings: LEFT HEART CATHETERIZATION FINDINGS: 1. Left main: The left main coronary artery is widely patent without any significant obstructive disease. 2. Left anterior descending: The LAD has an acute thrombotic lesion in the proximal body causing a 99% stenosis and MADI 1 flow throughout its vessel as well as the diagonal branches. 3. Left circumflex: The left circumflex artery is a nondominant vessel that supplies 4 OM branches. The left circumflex between OM2 and OM3 has a 30-40% stenosis. OM4 has diffuse 10-20% stenosis. The remainder of the system has luminal irregularities. 4. Right coronary artery: The RCA is a large dominant vessel that has 30-40% mid body stenosis. The distal RPDA branches off into 2 smaller vessels, 1 of which has a 30-40% ostial stenosis. The remainder of the RCA and its branches has diffuse 10% stenosis. There is faint collaterals from [id number]. 5. Left ventricle: A. End-diastolic pressure 16 mmHg. B. LV gram deferred. C. No significant gradient across aortic valve on catheter pullback. 6. Opening AO pressure 119/79 and closing AO pressure 110/80 Description of Procedure: Informed consent signed and placed in the chart. Patient transferred to cathodic protection technician room. Prepped and draped in usual sterile fashion. 2% lidocaine injected subcutaneously in right wrist area. 22-gauge venipuncture catheter used to access the right radial artery with the Seldinger technique. 6-FR slender sheath placed in right radial artery. Nitroglycerin 200mcg, Verapamil 2.5mg, and Heparin 5000U was given intraarterial through the sheath. J wire advanced under fluoroscopy. 5F Ultra diagnostic catheter across the aortic valve for LVEDP and aortic valve gradients. After pullback it was used to engage the left main coronary artery. The catheter was then switched out over a wire for a JR4 diagnostic catheter to engage the right coronary artery. Multiple orthogonal angiogram obtained and reviewed. Procedure Description for PCI: Heparin was used for anticoagulation (ACT maintained above 250) Patient loaded with heparin at 70 units/kg. 6F EBU 3.0 guide catheter was used to intubate the left main coronary artery. 0.014 runthrough coronary wire was passed in to the distal diagonal branch. The lesion was pre-dilated with a 2.5 x 10mm balloon to 11atm. A 3.0 x 12mm Wishram Gilchrist BARTOLOME was successfully deployed into proximal LAD; post dilated with a 3.5 x 10mm NC to high varsha with excellent angiographic results. Intracoronary NTG was administered. All intracoronary equipment was then removed under fluoroscopy. Follow-up angiograms showed an excellent result Pre-procedure - MADI 1 flow Post-procedure - MADI 3 flow No angiographic complications identified. Assessment: Successful PCI to proximal LAD with a 3.0 x 12mm Wishram Gilchrist BARTOLOME; post dilated with a 3.5 x 10mm NC with excellent angiographic results. Post Operative Condition: Stable No significant blood loss Disposition: Floor Plan: DAPT for a minimum of 1 year followed by ASA indefinitely. Continue aggressive medical therapy and risk factor modification. Transthoracic echocardiogram Jarad Matson Interventional Cardiology
[2025-11-20] MEDS: PERFLUTREN LIPID MICROSPHERES 1.5 ML VIAL DILUTED TO 10 ML TOTAL VOLUME IV PUSH (13:00)
--- NOTE | 2025-11-20 13:30 | IVDEFINITY ---
Prior to administration of IV Definity the patient was educated on the risks and benefits of the imaging enhancing agent including potential adverse side effects. The patient verbalized understanding. Allergies were verified. No exclusion criteria were identified and at least one of the following inclusion criteria were met: 1) physician request, 2) patient technically difficult to image (per the [place] [employer] guidelines of two or more segments not discernable within the apical view), or 3) questionable left ventricular function. ?
[2025-11-20] MEDS: SODIUM CHLORIDE 0.9% IV 1,000 ML 200 ML IV CONT (14:39)
--- NOTE | 2025-11-20 14:59 | ECG_ITS ---
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
[2025-11-20] MEDS: ACETAMINOPHEN 325 MG TABLET 650 MG PO (15:05)
[2025-11-20] MEDS: IBUPROFEN 400 MG TABLET 800 MG PO ×2 (15:08→22:40)
--- NOTE | 2025-11-20 15:33 | P.PNIM_ITS ---
Assessment and Plan Assessment and Plan (1) Non-STEMI (non-ST elevated myocardial infarction): Code(s): I21.4 - Non-ST elevation (NSTEMI) myocardial infarction Status: Acute Assessment and Plan: Patient presented with CP Troponin elevated to 1.4. CXR clear. EKG showing borderline ST-T wave abnormality in the high lateral leads. Patient was still having intermittent pain despite nitropaste, aspirin and mo rphine. Heparin drip started. Cardiology consulted and patient had LHC showing LAD has an acute thrombotic lesion in the proximal body causing a 99% stenosis and MADI 1 flow throughout its vessel as well as the diagonal branches. Minor disease elsewhere. A 3.0 x 12mm [place] BARTOLOME was successfully deployed into proximal LAD Post-procedure, patient with chest pain felt to be pericarditis. Ibuprofen and Colchicine ordered. Trop up to 4.57. EKG showing nonspecific T-Wave abnormalities lat and high lateral leads. Continue post-stent medical management with Toprol XL, Lipitor, ASA, Brilinta. (2) Hypertension: Qualifiers: Hypertension type: primary hypertension Qualified Code(s): I10 - Essential (primary) hypertension Code(s): I10 - Essential (primary) hypertension Status: Acute Assessment and Plan: Patient found to be hypertensive on arrival (161/113). BP improved after nitropaste. Patient has a distant history of essential HTN that required antihypertensive medications. BP has improved with treatment for the NSTEMI and the associated medication. Continue Toprol XL. Monitor (3) Hyperlipidemia: Qualifiers: Hyperlipidemia type: pure hypercholesterolemia Qualified Code(s): E78.00 - Pure hypercholesterolemia, unspecified Code(s): E78.5 - Hyperlipidemia, unspecified Status: Acute Assessment and Plan: Patient with HLD but not on treatment. . TC 190, LDL 118, TG 63 and HDL 60 in August. Started on high-intensity statin - Lipitor 80mg daily (4) CONSTANCE (obstructive sleep apnea): Code(s): G47.33 - Obstructive sleep apnea (adult) (pediatric) Status: Acute Assessment and Plan: The importance of compliance with CPAP therapy was discussed with the patient with the admitting provider. Untreated CONSTANCE can lead to increased cardiac strain and increased risk of SD and sudden cardiac . Patient verbalized understanding and is willing to try wearing his home CPAP Will order autotitrate CPAP (5) Benign prostatic hyperplasia: Qualifiers: Lower urinary tract symptom presence: symptoms absent Qualified Code(s): N40.0 - Benign prostatic hyperplasia without lower urinary tract symptoms Code(s): N40.0 - Benign prostatic hyperplasia without lower urinary tract symptoms Status: Acute Assessment and Plan: Stable. Continue Proscar. (6) Chronic GERD: Code(s): K21.9 - Gastro-esophageal reflux disease without esophagitis Status: Acute Assessment and Plan: Stable. Continue protonix Plan DVT Prophylaxis - SCDs Code status - Full Subjective Date/time seen: 11/20/25 15:33 Interval history: 60-year-old male with a past medical history of obesity, essential hypertension, untreated obstructive sleep apnea, GERD and BPH who presented to the ER in the company of his due to chest pain. He had chest pain after the LHC treated with Ibuprofen with benefit. Headache treated with Tylenol. Feeling well now. No n/v. Eating okay. Walking in room. Exam Narrative: AF ??97.5 147/93 81 18 98% ra Gen - NARD Chest - CTA bilaterally, nml RR CV - RRR S1/S2. Tele showing no significant dysrhythmia Abd - Soft, NT/ND, Positive BS Ext - No pedal edema. Right arm secured to board Neuro - Alert and oriented. ?Nonfocal exam. ? Psych - Nml mood and affect Skin - Warm and dry Objective Data Vital Signs Vital Signs: Vital Signs - 24 hr 11/19/25 23:06 11/20/25 00:16 11/20/25 00:17 Temperature 98.0 F Pulse Rate 92 91 90 Respiratory Rate 16 24 H 19 Blood Pressure 155/108 H 161/113 H Pulse Oximetry 98 94 99 Oxygen Delivery Room Air 11/20/25 00:28 11/20/25 00:30 11/20/25 00:32 Temperature Pulse Rate 99 93 89 Respiratory Rate 11 L 19 20 Blood Pressure 153/117 H 153/105 H Pulse Oximetry 96 97 97 Oxygen Delivery 11/20/25 00:37 11/20/25 00:42 11/20/25 00:45 Temperature Pulse Rate 96 92 91 Respiratory Rate 15 12 19 Blood Pressure 140/115 H 142/100 H Pulse Oximetry 95 96 95 Oxygen Delivery 11/20/25 00:47 11/20/25 00:52 11/20/25 00:57 Temperature Pulse Rate 86 88 86 Respiratory Rate 13 16 13 Blood Pressure 137/102 H 134/102 H 122/92 H Pulse Oximetry 97 96 95 Oxygen Delivery 11/20/25 01:00 11/20/25 01:02 11/20/25 01:07 Temperature Pulse Rate 76 87 87 Respiratory Rate 14 13 12 Blood Pressure 135/100 H 134/108 H Pulse Oximetry 97 98 97 Oxygen Delivery 11/20/25 01:12 11/20/25 01:15 11/20/25 01:17 Temperature Pulse Rate 82 80 84 Respiratory Rate 15 19 19 Blood Pressure 135/89 114/96 H Pulse Oximetry 97 97 96 Oxygen Delivery 11/20/25 01:22 11/20/25 01:27 11/20/25 01:27 Temperature Pulse Rate 76 83 Respiratory Rate 20 14 Blood Pressure 130/96 H 118/104 H Pulse Oximetry 97 98 98 Oxygen Delivery Room Air 11/20/25 01:45 11/20/25 02:00 11/20/25 04:00 Temperature 97.5 F L 97.4 F L Pulse Rate 77 76 76 Respiratory Rate 18 14 Blood Pressure 143/93 H 125/95 H Pulse Oximetry 100 100 Oxygen Delivery 11/20/25 04:00 11/20/25 06:00 11/20/25 07:30 Temperature 97.5 F L Pulse Rate 72 76 77 Respiratory Rate 20 Blood Pressure 127/90 Pulse Oximetry 97 Oxygen Delivery 11/20/25 08:00 11/20/25 09:04 11/20/25 11:30 Temperature Pulse Rate 81 88 71 Respiratory Rate 16 Blood Pressure 122/83 Pulse Oximetry 97 Oxygen Delivery Room Air 11/20/25 11:45 11/20/25 12:00 11/20/25 12:15 Temperature Pulse Rate 72 70 74 Respiratory Rate 12 12 11 L Blood Pressure 122/88 128/87 128/81 Pulse Oximetry 96 95 96 Oxygen Delivery Room Air Room Air Room Air 11/20/25 12:30 11/20/25 12:45 11/20/25 13:00 Temperature Pulse Rate 76 70 71 Respiratory Rate 14 16 15 Blood Pressure 129/96 H 140/98 H 131/89 Pulse Oximetry 96 97 97 Oxygen Delivery Room Air Room Air Room Air 11/20/25 13:15 11/20/25 13:30 11/20/25 13:45 Temperature Pulse Rate 84 79 75 Respiratory Rate 16 14 13 Blood Pressure 142/87 H 117/90 137/95 H Pulse Oximetry 98 97 97 Oxygen Delivery Room Air Room Air Room Air 11/20/25 14:00 11/20/25 14:15 11/20/25 14:30 Temperature Pulse Rate 74 74 80 Respiratory Rate 12 17 14 Blood Pressure 135/99 H 135/94 H 134/91 H Pulse Oximetry 96 97 96 Oxygen Delivery Room Air Room Air Room Air 11/20/25 14:45 11/20/25 15:00 11/20/25 15:15 Temperature Pulse Rate 73 78 80 Respiratory Rate 17 17 18 Blood Pressure 134/100 H 144/100 H 138/98 H Pulse Oximetry 96 99 99 Oxygen Delivery Room Air Room Air Room Air 11/20/25 15:30 Temperature Pulse Rate 81 Respiratory Rate 18 Blood Pressure 147/93 H Pulse Oximetry 98 Oxygen Delivery Room Air Meds/Results Medications: Active Medications Generic Name Dose Route Start Last Admin Trade Name Freq PRN Reason Stop Dose Admin Aspirin 81 mg 11/20/25 08:00 11/20/25 09:04 Aspirin 81 Mg Chewable Tablet PO 81 mg DAILY@0800 ANTONIO Administration Atorvastatin Calcium 80 mg 11/20/25 09:00 11/20/25 09:04 Atorvastatin 40 Mg Tablet PO 80 mg DAILY ANTONIO Administration Colchicine 0.6 mg 11/20/25 21:00 Colchicine 0.6 Mg Tablet PO Q12HR ANTONIO Finasteride 5 mg 11/20/25 21:00 Finasteride 5 Mg Tablet PO HS ANTONIO Sodium Chloride 1,000 mls @ 200 mls/hr 11/20/25 11:15 11/20/25 14:39 Normal Saline Iv IV CONT 11/20/25 16:14 200 mls/hr .Q5H ANTONIO Administration Melatonin 10 mg 11/20/25 21:00 Melatonin 5 Mg Tablet PO HS ANTONIO Metoprolol Succinate 25 mg 11/20/25 09:00 11/20/25 09:04 Metoprolol Succinate Ext Rel 25 Mg Tabcr PO 25 mg QAM ANTONIO Administration Ondansetron HCl 4 mg 11/20/25 01:08 Ondansetron Inj 4 Mg/2 Ml Vial IV PUSH Q4H PRN Nausea Pantoprazole Sodium 40 mg 11/20/25 09:00 11/20/25 09:04 Pantoprazole 40 Mg Tablet PO 40 mg DAILY ANTONIO Administration Ticagrelor 90 mg 11/20/25 21:00 Ticagrelor 90 Mg Tablet PO Q12HR [facility] Radiology Results: ITS Impressions Chest X-Ray 11/20/25 06:22 IMPRESSION: 1. No acute cardiopulmonary findings. Labs Labs: Laboratory Results - last 24 hr 11/19/25 11/20/25 11/20/25 23:20 02:19 03:48 WBC 6.0 RBC 5.41 Hgb 15.6 Hct 45.2 MCV 83.5 MCH 28.8 MCHC 34.5 RDW 13.4 Plt Count 134 L MPV 11.4 H Immature Gran % (Auto) 0.0 Neut % (Auto) 56.3 Lymph % (Auto) 34.7 [place] % (Auto) 6.2 Eos % (Auto) 2.5 Baso % (Auto) 0.3 Lymph # (Auto) 2.07 [place] # (Auto) 0.4 Eos # (Auto) 0.2 Baso # (Auto) 0.0 Abs Immat Gran (auto) 0.00 Absolute Neuts (auto) 3.4 Absolute Nucleated RBC 0.000 Nucleated RBC % 0.0 % Immature Plt Fraction 6.1 PT 12.1 INR 0.9 APTT 28.2 28.7 Sodium 137 Potassium 3.9 Chloride 105 Carbon Dioxide 24 Anion Gap 8 BUN 18 Creatinine 0.81 Estim Creat Clear Calc 90 Estimated GFR > 60 Glucose 128 H Calcium 8.7 Total Bilirubin 0.5 AST 40 ALT 27 Alkaline Phosphatase 147 H Troponin I 0.609 H* 1.030 H* D Total Protein 7.1 Albumin 4.2 Lipase 99 11/20/25 11/20/25 05:40 09:21 WBC RBC Hgb Hct MCV MCH MCHC RDW Plt Count MPV Immature Gran % (Auto) Neut % (Auto) Lymph % (Auto) [place] % (Auto) Eos % (Auto) Baso % (Auto) Lymph # (Auto) [place] # (Auto) Eos # (Auto) Baso # (Auto) Abs Immat Gran (auto) Absolute Neuts (auto) Absolute Nucleated RBC Nucleated RBC % % Immature Plt Fraction PT INR APTT 49.6 H Sodium Potassium Chloride Carbon Dioxide Anion Gap BUN Creatinine Estim Creat Clear Calc Estimated GFR Glucose Calcium Total Bilirubin AST ALT Alkaline Phosphatase Troponin I 1.400 H* D Total Protein Albumin Lipase
[2025-11-20 16:04] LABS: Troponin I 4.570 ng/mL (0.000-0.034)
--- NOTE | 2025-11-20 16:20 | ECG_ITS ---
Test Date: 2025-11-20 19:30:18 Measurements Intervals [place] Rate: 75 P: 18 [place]: 187 QRS: -12 QRSD: 98 T: 103 QT: 412 QTc: 460 Interpretive Statements SINUS RHYTHM DELAYED PRECORDIAL R/S TRANSITION BORDERLINE ST-T WAVE ABNORMALITY- HIGH LATERAL LEADS BASELINE ARTIFACT- III, AVL BORDERLINE ECG Compared to ECG 11/20/2025 15:12:48 NO SIGNIFICANT CHANGE Electronically Signed On 11-20-2025 21:01:12 CARDIAC RN by Denton Sadler D.O.
[2025-11-20 19:15] LABS: Troponin I 2.880 ng/mL (0.000-0.034)
[2025-11-20] MEDS: COLCHICINE 0.6 MG TABLET PO (20:34)
[2025-11-20] MEDS: FINASTERIDE 5 MG TABLET PO (20:35)
[2025-11-20] MEDS: MELATONIN 5 MG TABLET 10 MG PO (20:36)
[2025-11-20] MEDS: TICAGRELOR 90 MG TABLET PO (20:36)
--- NOTE | 2025-11-20 21:55 | PC.NURSE ---
Report given to ALFRED Carbajal
[2025-11-20 22:36] LABS: Troponin I 2.500 ng/mL (0.000-0.034)
[2025-11-21] VITALS (7 sets, daily range): BP systolic 110–143; BP diastolic 76–87; PULSE 67–88; RESP 15–18; TEMP 36.3–36.4; O2SAT 96–98
[2025-11-21 00:59] LABS: Troponin I 2.600 ng/mL (0.000-0.034)
--- NOTE | 2025-11-21 08:51 | PM.PNCARD ---
Progress Note: A&P Assessment and Plan (1) Non-STEMI (non-ST elevated myocardial infarction): Code(s): I21.4 - Non-ST elevation (NSTEMI) myocardial infarction Status: Acute (2) Hyperlipidemia: Qualifiers: Hyperlipidemia type: pure hypercholesterolemia Qualified Code(s): E78.00 - Pure hypercholesterolemia, unspecified Code(s): E78.5 - Hyperlipidemia, unspecified Status: Acute (3) CONSTANCE (obstructive sleep apnea): Code(s): G47.33 - Obstructive sleep apnea (adult) (pediatric) Status: Acute Plan 60-year-old man with CONSTANCE on CPAP presents with chest discomfort NSTEMI -he is s/p LHC with stent to pLAD -he is pain free this am -will continue on aspirin 81 mg daily and brilinta 90 mg BID -on atorvastatin 80 mg daily -started on Toprol Xl 25 mg p.o. daily -echo has been done and is pending Possible pericarditis -likely has some component of pericarditis as well, echo pending -started on colchicine 0.6 mg BID, would continue at discharge Hyperlipidemia -atorvastatin 80 mg every evening Obstructive sleep apnea -continue CPAP Echo pending and will be reviewed Planned for dc home later today will follow up in office in the next 2-4 week Subjective Date/time seen: 11/21/25 08:51 Interval history: 11/21/25: Patient is sitting up in bed, feeling well. His is at the bedside. He is anxious to go home today. Denies any chest pain or pressure. No shortness of breath Review of Systems Review of Systems: All systems reviewed & are unremarkable except as noted in HPI and below Exam Const: General: comfortable and no acute distress Neck: Neck: no JVD Resp: Effort & Inspection: normal respiratory effort Auscultation: clear to auscultation bilaterally Cardio: Rate: regular rate Rhythm: regular rhythm Heart sounds: no gallops, no murmurs and no rubs Skin: General skin exam: normal color Other: rt radial cath site is S/D/I no hematoma noted Neuro: Speech: normal speech Extrem: General: normal to inspection Psych: Mental Status: mental status grossly normal Objective Data Vital Signs Vital Signs: Vital Signs - 24 hr 11/20/25 09:04 11/20/25 11:30 11/20/25 11:45 Temperature Pulse Rate 88 71 72 Respiratory Rate 16 12 Blood Pressure 122/83 122/88 Pulse Oximetry 97 96 Oxygen Delivery Room Air Room Air 11/20/25 12:00 11/20/25 12:15 11/20/25 12:30 Temperature Pulse Rate 70 74 76 Respiratory Rate 12 11 L 14 Blood Pressure 128/87 128/81 129/96 H Pulse Oximetry 95 96 96 Oxygen Delivery Room Air Room Air Room Air 11/20/25 12:45 11/20/25 13:00 11/20/25 13:15 Temperature Pulse Rate 70 71 84 Respiratory Rate 16 15 16 Blood Pressure 140/98 H 131/89 142/87 H Pulse Oximetry 97 97 98 Oxygen Delivery Room Air Room Air Room Air 11/20/25 13:30 11/20/25 13:45 11/20/25 14:00 Temperature Pulse Rate 79 75 74 Respiratory Rate 14 13 12 Blood Pressure 117/90 137/95 H 135/99 H Pulse Oximetry 97 97 96 Oxygen Delivery Room Air Room Air Room Air 11/20/25 14:15 11/20/25 14:30 11/20/25 14:45 Temperature Pulse Rate 74 80 73 Respiratory Rate 17 14 17 Blood Pressure 135/94 H 134/91 H 134/100 H Pulse Oximetry 97 96 96 Oxygen Delivery Room Air Room Air Room Air 11/20/25 15:00 11/20/25 15:15 11/20/25 15:30 Temperature Pulse Rate 78 80 81 Respiratory Rate 17 18 18 Blood Pressure 144/100 H 138/98 H 147/93 H Pulse Oximetry 99 99 98 Oxygen Delivery Room Air Room Air Room Air 11/20/25 16:00 11/20/25 16:18 11/20/25 16:42 Temperature 36.4 C L 36.4 C L Pulse Rate 67 84 86 Respiratory Rate 20 18 Blood Pressure 140/101 H 140/97 H Pulse Oximetry 95 99 Oxygen Delivery 11/20/25 17:29 11/20/25 18:00 11/20/25 18:44 Temperature Pulse Rate 78 77 75 Respiratory Rate 18 Blood Pressure 139/90 134/88 Pulse Oximetry Oxygen Delivery 11/20/25 19:30 11/20/25 20:00 11/20/25 21:07 Temperature 36.3 C L Pulse Rate 74 76 83 Respiratory Rate 16 Blood Pressure 128/87 Pulse Oximetry 95 95 Oxygen Delivery Autopap 11/20/25 22:00 11/21/25 00:00 11/21/25 00:00 Temperature 36.3 C L Pulse Rate 81 75 72 Respiratory Rate 15 Blood Pressure 110/76 Pulse Oximetry 98 Oxygen Delivery 11/21/25 02:00 11/21/25 04:00 11/21/25 04:00 Temperature 36.4 C Pulse Rate 71 74 71 Respiratory Rate 15 Blood Pressure 119/80 Pulse Oximetry 96 Oxygen Delivery 11/21/25 06:00 11/21/25 08:00 Temperature 36.3 C L Pulse Rate 67 75 Respiratory Rate 18 Blood Pressure 143/87 H Pulse Oximetry 98 Oxygen Delivery Intake/Output Intake/Output: Intake & Output 11/18/25 11/19/25 11/20/25 11/21/25 23:59 23:59 23:59 23:59 Intake Total 1240 490 Output Total 250 Balance 990 490 Meds/Results Medications: Active Medications Generic Name Dose Route Start Last Admin Trade Name Freq PRN Reason Stop Dose Admin Aspirin 81 mg 11/20/25 08:00 11/20/25 09:04 Aspirin 81 Mg Chewable Tablet PO 81 mg DAILY@0800 ANTONIO Administration Atorvastatin Calcium 80 mg 11/20/25 09:00 11/20/25 09:04 Atorvastatin 40 Mg Tablet PO 80 mg DAILY ANTONIO Administration Colchicine 0.6 mg 11/20/25 21:00 11/20/25 20:34 Colchicine 0.6 Mg Tablet PO 0.6 mg Q12HR ANTONIO Administration Finasteride 5 mg 11/20/25 21:00 11/20/25 20:35 Finasteride 5 Mg Tablet PO 5 mg HS ANTONIO Administration Ibuprofen 800 mg 11/20/25 23:00 11/20/25 22:40 Ibuprofen 400 Mg Tablet PO 11/21/25 15:01 800 mg Q8H ANTONIO Administration Melatonin 10 mg 11/20/25 21:00 11/20/25 20:36 Melatonin 5 Mg Tablet PO 10 mg HS ANTONIO Administration Metoprolol Succinate 25 mg 11/20/25 09:00 11/20/25 09:04 Metoprolol Succinate Ext Rel 25 Mg Tabcr PO 25 mg QAM ANTONIO Administration Ondansetron HCl 4 mg 11/20/25 01:08 Ondansetron Inj 4 Mg/2 Ml Vial IV PUSH Q4H PRN Nausea Pantoprazole Sodium 40 mg 11/20/25 09:00 11/20/25 09:04 Pantoprazole 40 Mg Tablet PO 40 mg DAILY ANTONIO Administration Ticagrelor 90 mg 11/20/25 21:00 11/20/25 20:36 Ticagrelor 90 Mg Tablet PO 90 mg Q12HR ANTONIO Administration Radiology Results: ITS Impressions Chest X-Ray 11/20/25 06:22 IMPRESSION: 1. No acute cardiopulmonary findings. Labs Labs: Laboratory Results - last 24 hr 11/20/25 11/20/25 11/20/25 09:21 15:29 18:40 APTT 49.6 H Troponin I 4.570 H* 2.880 H* D 11/20/25 11/21/25 21:47 00:13 APTT Troponin I 2.500 H* 2.600 H*
[2025-11-21] MEDS: PANTOPRAZOLE 40 MG TABLET PO (09:00)
[2025-11-21] MEDS: COLCHICINE 0.6 MG TABLET PO (09:00)
[2025-11-21] MEDS: ATORVASTATIN 40 MG TABLET 80 MG PO (09:01)
[2025-11-21] MEDS: METOPROLOL SUCCINATE EXT REL 25 MG TABCR PO (09:01)
[2025-11-21] MEDS: ASPIRIN 81 MG CHEWABLE TABLET PO (09:01)
[2025-11-21] MEDS: TICAGRELOR 90 MG TABLET PO (09:01)
--- NOTE | 2025-11-21 10:40 | P.DS_ITS ---
DS: Admitting Diagnosis Discharge Date 11/21/25 Admitting Diagnosis Chest pain DS: Discharge Diagnosis Discharge Diagnosis (1) Non-STEMI (non-ST elevated myocardial infarction): Code(s): I21.4 - Non-ST elevation (NSTEMI) myocardial infarction Status: Acute DS: Summary Hospital Course Hospital Course: Discharge Diagnoses * Non?ST-elevation myocardial infarction (NSTEMI)?status post PCI to proximal LAD * Coronary artery disease * Post-DC pericarditis * Essential hypertension * Hyperlipidemia * Obstructive sleep apnea * Chronic GERD * Benign prostatic hyperplasia Hospital Course The patient presented with several days of progressive substernal chest pain, initially exertional and later occurring at rest, associated with elevated troponins (peak 4.57 ng/mL). EKG showed nonspecific ST-T wave abnormalities. He was diagnosed with NSTEMI and started on aspirin and heparin infusion. Cardiology consultation was obtained. Left heart catheterization on 11/20/25 revealed a?99% acute thrombotic lesion of the proximal LAD with MADI 1 flow. The patient underwent?successful PCI with placement of a 3.0 x 12 mm [place] drug-eluting stent, restoring MADI 3 flow. Mild non-obstructive disease was note d elsewhere. Post-procedure, the patient developed recurrent chest pain felt to be consistent with?post-DC pericarditis, which improved with ibuprofen and colchicine. He remained hemodynamically stable, chest-pain free, and ambulating without difficulty. Transthoracic echocardiogram was obtained showed 60-65% with grade I daistolic dysfunction. He was optimized on guideline-directed medical therapy and deemed stable for discharge home. Discharge Medications * Aspirin 81 mg PO daily?(indefinitely) * Ticagrelor 90 mg PO BID?(continue for at least 12 months) * Atorvastatin 80 mg PO nightly * Metoprolol succinate (Toprol XL) 25 mg PO daily * Colchicine 0.6 mg PO BID?(for post-DC pericarditis) * Ibuprofen 800 mg PO q8h?(short-term for pericarditis pain) * Pantoprazole 40 mg PO daily * Finasteride 5 mg PO nightly * Melatonin 10 mg PO nightly Discharge Instructions * Strict adherence to?dual antiplatelet therapy?emphasized * Avoid NSAIDs other than prescribed ibuprofen * Radial cath site care instructions reviewed * Resume?CPAP?nightly for obstructive sleep apnea * Cardiac diet and activity as tolerated; avoid heavy lifting with right arm for 5?7 days Follow-Up * Cardiology:?Outpatient follow-up in?2?4 weeks * Primary Care:?Within?3-5 days * Review transthoracic echocardiogram results at follow-up Condition at Discharge Stable, chest pain free, hemodynamically stable, ambulating independently. Time Spent with Patient Time attestation: Total time spent providing and/or coordinating discharge services: DS: Data Data Completed and Pending Labs on day of discharge: Labs from last 24 hours 11/21/25 11/20/25 11/20/25 00:13 21:47 18:40 Troponin I 2.600 H* 2.500 H* 2.880 H* D 11/20/25 15:29 Troponin I 4.570 H* Discharge Plan Discharge Attending physician on discharge: Charlie Trujillo Consulting providers: Jarad Matson; Karina De Los Santos; Charlie Trujillo Discharging Clinician: Charlie Trujlilo Anticipated Discharge Date/Time: 11/21/25 09:59 Patient Disposition: Home Activity: as tolerated Diet: heart healthy Discharge Instructions: [facility] [address] [place] [address] DISCHARGE INSTRUCTIONS - POST PCI Activity 1. No driving until 11/21/25. 2. No lifting, pushing or pulling more than 10 pounds for 1 week. 3. No strenuous exercise or activity (including sexual activity) until you are released to do so. 4. May shower but no tub baths or swimming pool for 1 week. Avoid commercial hot tubs. They are too hot. Medications DO NOT STOP YOUR MEDICATIONS ONLY YOUR [employer] NET DEVELOPER CAN STOP THE FOLLOWING MEDICATIONS - PLEASE CALL THE OFFICE WITH QUESTIONS. *Aspirin *Ticagrelor (Brilinta) *Atorvastatin *Lisinopril or ARB *Metoprolol tartrate or succinate *Clopidogrel (Plavix) *Prasugrel (Effient) Important Reminders 1. Keep your stent card in your wallet at all times 2. Follow a heart healthy diet paying extra attention to cholesterol and fats. 3. Stay hydrated. 4. If you have chest pain unrelieved by rest or nitroglycerin (if prescribed) call 911 immediately. 5. If you miss one dose of Brilinta (if prescribed) take a tablet at the next time due. If you miss 2 doses take a tablet when you remember and resume at the next time due. *For any other questions please call the office at [phone]. Office hours are 8AM 4:30PM Wednesday through Wednesday. Patient Instructions: Antibiotic Form, Blood Thinners (GEN), After Radial Heart Catheterization (GEN) Patient Language: Malay Stand Alone Forms: General Discharge Information Follow-up/Referrals: Leonel Fall MD [Primary Care Provider, Family Practice] Referral Note: F/u with PCP in 3-5 days Karina De Los Santos APN-C [Advanced Practice Nurse, Cardiology] Referral Note: F/u with cardiology as instructed Discharge Medications: New aspirin [Children's Aspirin] 81 mg Tablet,Chewable 81 mg PO DAILY@0800 Qty: 90 0RF metoprolol succinate [Toprol XL] 25 mg Tablet Extended Release 24 Hr 25 mg PO QAM Qty: 90 0RF colchicine [Colcrys] 0.6 mg Tablet 0.6 mg PO Q12HR Qty: 180 0RF ticagrelor [Brilinta] 90 mg Tablet 90 mg PO Q12HR Qty: 180 0RF atorvastatin [Lipitor] 80 mg tablet 80 mg PO HS Qty: 90 0RF atorvastatin [Lipitor] 80 mg tablet 80 mg PO HS Qty: 90 0RF Continued pantoprazole 40 mg tablet,delayed release (DR/EC) See Rx Instructions .ROUTE .COMPLEX Qty: 90 3RF Dose Instruction: TAKE 1 TABLET EVERY MORNING Rx Instructions: TAKE 1 TABLET EVERY MORNING ibuprofen 800 mg tablet 800 mg PO PRN finasteride 5 mg tablet 5 mg PO HS Qty: 90 1RF Rx Instructions: Takes right after dinner doxepin 6 mg tablet See Rx Instructions .ROUTE .COMPLEX Qty: 30 2RF Dose Instruction: TAKE 1 TABLET BY MOUTH EVERY DAY AT BEDTIME NEEDED FOR SLEEP Rx Instructions: TAKE 1 TABLET BY MOUTH EVERY DAY AT BEDTIME NEEDED FOR SLEEP Date of admission: 11/20/25 01:08 Primary Care Provider: Leonel Fall Admitting Provider: Nicci Turcios Attending physician on admission: Nicci Turcios Condition: Stable
== END 2025-11-21 12:10 | disposition home or self-care (01) ==
LOC: ANHED 11-20 00:35 → ANHIMU 11-20 03:53
PROVIDERS: Internal Medicine; Admitting Provider Internal Medicine; Emergency Provider Emergency Medicine; PCP Family Medicine; Visit Provider Internal Medicine
PROC: 4A023N7 Measurement of Cardiac Sampling and Pressure, Left Heart, Percutaneous Approach (ICD-10-PCS; CPT 93452; principal; 2025-11-20 10:00)
DX: I21.4 Non-ST elevation (NSTEMI) myocardial infarction (principal); E78.00 Pure hypercholesterolemia, unspecified; I10 Essential (primary) hypertension; K21.9 Gastro-esophageal reflux disease without esophagitis; N40.0 Benign prostatic hyperplasia without lower urinary tract symptoms; G47.33 Obstructive sleep apnea (adult) (pediatric); K76.0 Fatty (change of) liver, not elsewhere classified; Z79.1 Long term (current) use of non-steroidal anti-inflammatories (NSAID); Z82.49 Family history of ischemic heart disease and other diseases of the circulatory system
CPT/HCPCS: 36415; 71046; 80053; 83690; 84484; 85025; 85055; 85610; 85730; 93005; 93458; 96374; 96375; 99285; A9270; C1725; C1769; C1874; C1887; C1894; C8929; C9600; G0378; J1644; J2003; J2250; J2270; J2305; J2405; J3010; J7030; J7040; Q9957